=== PATIENT | female | born 1950 | race American Indian/Alaskan Native ===

== ENCOUNTER 2019-07-18 20:34 | Emergency (ER) | payer OTHER, MEDICARE ==
[~2019-07-18] VITALS: Ht 154.9 cm; Wt 115.9 kg
[~2019-07-18 20:34] MED LIST: AMLO2.5T2 PO; CETI-1 PO; DULO-31 PO; METO50TA7 PO; MONT10TA21 PO; OLME40TA13 PO; RANI-648 PO; TIZA4TAB11 PO
[2019-07-18 21:22] LABS: BASOPHILS # (AUTO) 0.1 X10'3 (0-0.2); BASOPHILS % (AUTO) 0.9 % (0-1); EOSINOPHILS # (AUTO) 0.3 X10'3 (0-0.9); EOSINOPHILS % (AUTO) 2.6 % (0-6); HEMATOCRIT 38.1 % (35.0-45.0); HEMOGLOBIN 12.5 g/dl (12.0-16.0); LYMPHOCYTES # (AUTO) 2.7 X10'3 (1.1-4.8); LYMPHOCYTES % (AUTO) 22.1 % (21-51); MEAN CORPUSCULAR HEMOGLOBIN 26.2 PG (27.0-31.0); MEAN CORPUSCULAR HGB CONC 32.9 g/dL (33.0-36.5); MEAN CORPUSCULAR VOLUME 79.8 FL (78-98); MEAN PLATELET VOLUME 7.3 FL (7.4-10.4); MONOCYTES # (AUTO) 1.2 X10'3 (0-0.9); MONOCYTES % (AUTO) 9.8 % (2-12); NEUTROPHILS # (AUTO) 7.9 X10'3 (1.8-7.7); NEUTROPHILS % (AUTO) 64.6 % (42-75); PLATELET COUNT 334 X10'3 (140-440); RED BLOOD COUNT 4.77 X10'6 (4.20-5.60); RED CELL DISTRIBUTION WIDTH 16.2 % (11.5-14.5); WHITE BLOOD COUNT 12.3 X10'3 (4.5-11.0)
[2019-07-18 21:35] LABS: ANION GAP 15 (8-16); BLOOD UREA NITROGEN 8 MG/DL (7-18); BUN/CREATININE RATIO 6.1 (6.6-38.0); CHLORIDE 100 MMOL/L (99-107); CREATININE 1.32 MG/DL (0.40-0.90); GLUCOSE 400 MG/DL (70-104); POTASSIUM 3.6 MMOL/L (3.5-5.1); SODIUM 136 MMOL/L (135-145); eGFR 40 ML/MIN
[2019-07-18 21:36] LABS: ALANINE AMINOTRANSFERASE 19 U/L (12-78); ALBUMIN 3.2 G/DL (3.4-5.0); ALBUMIN/GLOBULIN RATIO 0.8 (1.1-1.5); ALKALINE PHOSPHATASE 255 IU/L (46-116); ASPARTATE AMINO TRANSFERASE 31 U/L (10-37); BILIRUBIN,TOTAL 0.6 MG/DL (0.1-1.0); CALCIUM 8.7 MG/DL (8.5-10.1); LIPASE 123 U/L (73-393); TOTAL PROTEIN 7.1 G/DL (6.4-8.2)
[2019-07-18 22:22] LABS: TROPONIN I < 0.04 NG/ML (0.0-0.05)
[2019-07-18] MEDS ORDERED: normal saline 1000ML IV soln IVB ONE (23:05)
[2019-07-18] MEDS ORDERED: insulin regular, human 10 units/0.1 ml syringe IV ONE (23:05)
[2019-07-18] MEDS ORDERED: ondansetron/PF 4mg/2ml inj IV ONE (23:10)
[2019-07-18] MEDS ORDERED: pantoprazole 40 MG vial IV ONE (23:10)
[2019-07-18] MEDS ORDERED: amLODIPine 5mg tablet PO ONE (23:35)
[2019-07-18] MEDS ORDERED: labetalol 20mg/4ml (5mg/ml) syringe IV ONE (23:35)
[2019-07-19] MEDS ORDERED: insulin regular, human 10 units/0.1 ml syringe IV ONE (00:50)
[2019-07-19] MEDS ORDERED: normal saline 1000ml 1,000 ML IV ONE (00:50)
[2019-07-19 01:15] LABS: CLARITY,URINE CLOUDY (Clear); COLOR,URINE YELLOW (Yellow); GLUCOSE, URINE >=1000 mg/dl (Neg); KETONES,URINE NEGATIVE (Neg); LEUKOCYTE ESTERASE ,URINE NEGATIVE (Neg); NITRITES, URINE NEGATIVE (Neg); OCCULT BLOOD,URINE NEGATIVE (Neg); PROTEIN,URINE NEGATIVE (Neg)
[2019-07-19 01:19] LABS: UA COLLECTION TYPE CLN CATCH MIDSTREAM
[2019-07-19 01:22] LABS: BACTERIA,URINE FEW /HPF (Neg); RBC,URINE NONE SEEN /HPF (0-2); SQUAMOUS EPITHELIAL CELL,UR FEW /LPF (FEW); WBC,URINE 0-4 /HPF (0-4); YEAST FEW /HPF (NEGATIVE)
[2019-07-19] MEDS ORDERED: ketorolac trometh. 30mg/ml inj. IV ONE (01:25)
[2019-07-19] MEDS ORDERED: fentaNYL/PF 50MCG/1 ML 2ML syringe IV ONE (01:25)
[2019-07-19 02:54] VITALS: BP 165/58
== END 2019-07-19 02:40 | disposition home or self-care (01) ==
LOC: ER 20:35
DX: R10.84 Generalized abdominal pain (principal); R21 Rash and other nonspecific skin eruption; E11.65 Type 2 diabetes mellitus with hyperglycemia; R42 Dizziness and giddiness; E11.42 Type 2 diabetes mellitus with diabetic polyneuropathy; M19.90 Unspecified osteoarthritis, unspecified site; I50.9 Heart failure, unspecified; Z56.0 Unemployment, unspecified; Z90.49 Acquired absence of other specified parts of digestive tract; Z90.710 Acquired absence of both cervix and uterus; Z88.0 Allergy status to penicillin; Z88.5 Allergy status to narcotic agent; Z88.8 Allergy status to other drugs, medicaments and biological substances; Z79.899 Other long term (current) drug therapy
CPT/HCPCS: 36415; 71045; 74176; 80053; 81001; 82948; 83690; 84484; 85025; 87088; 93005; 96361; 96374; 96375; 96376; 99284; C9113; J1815; J1885; J2405; J3010; J7030; J3490

== ENCOUNTER 2019-09-16 08:42 | Inpatient (IN) | payer OTHER, MEDICARE ==
[~2019-09-16] VITALS: Ht 154.9 cm; Wt 128.0 kg
[2019-09-16] MEDS ORDERED: acetaminophen 325mg tablet PO STA (08:57)
[2019-09-16] MEDS ORDERED: CefTRIAXone 2gm/D5W 50ml 50 ML IV ONE (09:00)
[2019-09-16] MEDS ORDERED: normal saline 1000ML IV soln IV ONE (09:00)
[2019-09-16 09:25] LABS: CLARITY,URINE CLOUDY (Clear); COLOR,URINE YELLOW (Yellow); GLUCOSE, URINE 500 mg/dl (Neg); KETONES,URINE NEGATIVE (Neg); LEUKOCYTE ESTERASE ,URINE SMALL (Neg); NITRITES, URINE POSITIVE (Neg); OCCULT BLOOD,URINE MODERATE (Neg); PH,URINE 5.5 (4.8-8.0); PROTEIN,URINE 100 mg/dl (Neg)
[2019-09-16 09:26] LABS: UA COLLECTION TYPE STRAIGHT CATH
[2019-09-16 09:30] LABS: BACTERIA,URINE 4+ /HPF (Neg); MUCUS STRANDS NONE SEEN /LPF (Neg); SQUAMOUS EPITHELIAL CELL,UR NONE SEEN /LPF (FEW); WBC CLUMPS,URINE MANY /HPF (NEGATIVE); WBC,URINE TNTC /HPF (0-4)
[2019-09-16 09:45] LABS: BASOPHILS % (AUTO) 0 % (0-1); EOSINOPHILS % (AUTO) 0.3 % (0-6); HEMATOCRIT 31.7 % (35.0-45.0); HEMOGLOBIN 10.5 g/dl (12.0-16.0); LYMPHOCYTES # (AUTO) 0.3 X10'3 (1.1-4.8); LYMPHOCYTES % (AUTO) 3.6 % (21-51); MEAN CORPUSCULAR HEMOGLOBIN 27.3 PG (27.0-31.0); MEAN CORPUSCULAR VOLUME 82.6 FL (78-98); MEAN PLATELET VOLUME 7.3 FL (7.4-10.4); MONOCYTES # (AUTO) 0.1 X10'3 (0-0.9); MONOCYTES % (AUTO) 0.9 % (2-12); NEUTROPHILS # (AUTO) 7.7 X10'3 (1.8-7.7); NEUTROPHILS % (AUTO) 95.2 % (42-75); PLATELET COUNT 188 X10'3 (140-440); RED BLOOD COUNT 3.84 X10'6 (4.20-5.60); RED CELL DISTRIBUTION WIDTH 19.2 % (11.5-14.5)
[2019-09-16] MEDS ORDERED: NITR0.4T48 SL (09:53)
[2019-09-16 09:55] LABS: PARTIAL THROMBOPLASTIN TIME 27 SECONDS (22-32)
[2019-09-16 10:00] LABS: ALANINE AMINOTRANSFERASE 20 U/L (12-78); ALBUMIN 2.3 G/DL (3.4-5.0); ALBUMIN/GLOBULIN RATIO 0.7 (1.1-1.5); ALKALINE PHOSPHATASE 212 IU/L (46-116); ANION GAP 11 (8-16); ASPARTATE AMINO TRANSFERASE 32 U/L (10-37); BILIRUBIN,TOTAL 1.3 MG/DL (0.1-1.0); BLOOD UREA NITROGEN 14 MG/DL (7-18); CALCIUM 7.7 MG/DL (8.5-10.1); CHLORIDE 105 MMOL/L (99-107); CREATININE 1.56 MG/DL (0.40-0.90); GLUCOSE 245 MG/DL (70-104); POTASSIUM 3.6 MMOL/L (3.5-5.1); SODIUM 138 MMOL/L (135-145); TOTAL CARBON DIOXIDE 22.2 MMOL/L (24-32); TOTAL PROTEIN 5.8 G/DL (6.4-8.2); eGFR 33 ML/MIN
[2019-09-16] MEDS ORDERED: DOXE10CA2 PO (10:03)
[2019-09-16] MEDS ORDERED: CHOL400T14 PO (10:03)
[2019-09-16] MEDS ORDERED: CETI10TA18 PO (10:03)
[2019-09-16] MEDS ORDERED: INSU100C4 SQ (10:03)
[2019-09-16] MEDS ORDERED: HYDR-3686 PO (10:03)
[2019-09-16] MEDS ORDERED: DULA0.75 (10:03)
[2019-09-16] MEDS ORDERED: LOSA50TA64 PO (10:03)
[2019-09-16] MEDS ORDERED: NABU500T2 PO (10:03)
[2019-09-16] MEDS ORDERED: CLOT10TR5 PO (10:03)
[2019-09-16] MEDS ORDERED: TIZA4CAP PO (10:03)
[2019-09-16 10:08] LABS: MAGNESIUM 1.4 MG/DL (1.5-2.4)
[2019-09-16] MEDS ORDERED: heparin 25,000 UNIT/250ml bag 250 ML IV SCH (10:14)
--- NOTE | 2019-09-16 10:14 | NUR ---
Lab called with a critical troponin of 1.18 and lactic acid of 5.2. Dr Fernandez notified.
[2019-09-16] MEDS ORDERED: heparin 10,000 units/1 ML INJ IV ONE ×2 (10:15→10:20)
[2019-09-16 10:16] LABS: ANISOCYTOSIS 2+; PLATELET ESTIMATE NORMAL; POLYCHROMASIA 1+; ROULEAUX 1+; TOTAL CELLS COUNTED 100; TOXIC VACUOLATION 1+
[2019-09-16] MEDS: heparin 10,000 units/1 ML INJ IV PRN (10:37)
[2019-09-16] MEDS ORDERED: normal saline 1000ML IV soln IVB ONE (10:55)
[2019-09-16] MEDS: heparin 25,000 UNIT/250ml bag 250 ML IV SCH ×2 (11:02→18:22)
[2019-09-16] MEDS ORDERED: ondansetron/PF 4mg/2ml inj IV PRN (11:30)
[2019-09-16] MEDS ORDERED: magnesium 2GM in 50ml NS 50 ML IV PRN (11:30)
[2019-09-16] MEDS ORDERED: magnesium 4gm in 100ml NS 100 ML IV PRN (11:30)
[2019-09-16] MEDS ORDERED: magnesium hydroxide 30ml (MOM) UD suspension PO PRN (11:30)
[2019-09-16] MEDS ORDERED: morphine 2 MG/ML inj. syringe IV PRN ×2 (11:30)
[2019-09-16] MEDS ORDERED: acetaminophen 325mg tablet PO PRN ×2 (11:30)
[2019-09-16] MEDS ORDERED: potassium Cl 20 mEq SR tablet PO PRN ×2 (11:30)
[2019-09-16] MEDS ORDERED: mag hydrox/Alum hydrox/simeth 30ml oral suspension PO PRN (11:30)
[2019-09-16] MEDS ORDERED: potassium CL 10mEq/100ml bag 100 ML IV PRN ×2 (11:30)
[2019-09-16 11:34] LABS: LIPASE 103 U/L (73-393)
[2019-09-16 12:47] LABS: HEMOGLOBIN A1C 11.3 % (4.5-6.2)
[2019-09-16] MEDS ORDERED: DULA1.5P SQ (12:54)
--- NOTE | 2019-09-16 14:06 | NUR ---
recieved report from VIKASH Bond RN
--- NOTE | 2019-09-16 15:03 | NUR ---
[id number] MESSAGE: New pt arrived to tele Sarai Robert rm 3011S Need meds reconciled. Jody RN [id number] (81 character message out of a maximum of 240)
[2019-09-16] MEDS ORDERED: hydrOXYzine 25 MG tablet PO PRN (15:10)
[2019-09-16] MEDS ORDERED: dextrose 50%-water 50ml dispensing syringe IV PRN ×2 (15:55)
[2019-09-16] MEDS ORDERED: MESSAGE TO PHARMACY PO ONE (15:55)
[2019-09-16] MEDS ORDERED: dextrose ORAL solution 15 GM/59 ML bottle PO PRN ×2 (15:55)
[2019-09-16] MEDS ORDERED: glucagon, human recombinant 1mg kit SUBCUT PRN (15:55)
[2019-09-16] MEDS: normal saline 1000ml 1,000 ML IV SCH (17:40)
[2019-09-16 18:00] VITALS: BP 119/59
--- NOTE | 2019-09-16 18:23 | NUR ---
Problems reprioritized. Patient report given, questions answered & plan of care reviewed with BAYLEE Gu.
--- NOTE | 2019-09-16 18:43 | NUR ---
Patient in room PCU 3012. I have received report from Jody BEACH and had the opportunity to ask questions and assume patient care.
[2019-09-16] MEDS: insulin Lispro (HumaLOG) vial - multi-dose SQ SCH ×2 (19:16→21:12)
[2019-09-16] MEDS ORDERED: tizanidine 4mg tablet PO PRN (20:00)
[2019-09-16] MEDS: K and/or MAG REPLACEMENT MC SCH (20:16)
[2019-09-16] MEDS: lactobacillus rhamnosus 10,000 MMU CELLS/CAPSULE PO SCH (20:55)
[2019-09-16] MEDS: amLODIPine 5mg tablet PO SCH (20:56)
[2019-09-16] MEDS: metoprolol succinate 25mg (24-HOUR) SR. Tablet PO SCH (20:56)
[2019-09-16] MEDS: HYDROcodone/acetaminophen 5mg/325mg tablet PO PRN (21:01)
[2019-09-16] MEDS: insulin glargine (Lantus) pen - multi-dose SQ SCH (21:13)
--- NOTE | 2019-09-16 21:30 | NUR ---
Notified Dr. Gabriel of positive blood cultures and troponin of 3.29. No orders received, pt on ceftriaxone
[2019-09-16 22:00] VITALS: BP 151/59
[2019-09-16] MEDS: doxepin 10mg capsule PO SCH (22:39)
[2019-09-16] MEDS: nitroGLYCERIN 0.4mg SUBLingual tab SL PRN ×2 (22:48→22:54)
--- NOTE | 2019-09-16 23:07 | NUR ---
pt complaining of 10/10 epigastric pain, per pt this is the same pain which brought her to the hospital. 12 EKG obtained per protocol, pt given two doses 0.4mg nitro SL, and 1 dose of morphine 2mg IV per orders. Dr. Gabriel notified and given EKG, pts pain back to a 2/10.
[2019-09-17 01:04] LABS: BASOPHILS # (AUTO) 0.2 X10'3 (0-0.2); EOSINOPHILS # (AUTO) 0.1 X10'3 (0-0.9); EOSINOPHILS % (AUTO) 1.1 % (0-6); HEMATOCRIT 30.3 % (35.0-45.0); HEMOGLOBIN 10.1 g/dl (12.0-16.0); LYMPHOCYTES # (AUTO) 1.1 X10'3 (1.1-4.8); MEAN CORPUSCULAR HEMOGLOBIN 27.3 PG (27.0-31.0); MEAN CORPUSCULAR HGB CONC 33.2 g/dL (33.0-36.5); MEAN CORPUSCULAR VOLUME 82.2 FL (78-98); MEAN PLATELET VOLUME 7.6 FL (7.4-10.4); MONOCYTES # (AUTO) 0.5 X10'3 (0-0.9); MONOCYTES % (AUTO) 4.6 % (2-12); NEUTROPHILS # (AUTO) 9.8 X10'3 (1.8-7.7); NEUTROPHILS % (AUTO) 83.3 % (42-75); PLATELET COUNT 182 X10'3 (140-440); RED BLOOD COUNT 3.69 X10'6 (4.20-5.60); RED CELL DISTRIBUTION WIDTH 19.5 % (11.5-14.5); WHITE BLOOD COUNT 11.8 X10'3 (4.5-11.0)
[2019-09-17 01:22] LABS: ALBUMIN 2.3 G/DL (3.4-5.0); ANION GAP 6 (8-16); BLOOD UREA NITROGEN 20 MG/DL (7-18); BUN/CREATININE RATIO 12.6 (6.6-38.0); CALCIUM 7.4 MG/DL (8.5-10.1); CHLORIDE 108 MMOL/L (99-107); CHOL/HDL RATIO 3.4 (0.00-4.99); CHOLESTEROL 74 MG/DL (0-200); CREATININE 1.59 MG/DL (0.40-0.90); GLUCOSE 213 MG/DL (70-104); HDL CHOLESTEROL 22 MG/DL (35-60); LDL CHOLESTEROL 43 MG/DL (50-100); MAGNESIUM 1.5 MG/DL (1.5-2.4); POTASSIUM 3.8 MMOL/L (3.5-5.1); SODIUM 138 MMOL/L (135-145); TOTAL CARBON DIOXIDE 23.9 MMOL/L (24-32); TRIGLYCERIDES 101 MG/DL (20-135); eGFR 32 ML/MIN
[2019-09-17 02:00] VITALS: BP 131/64
[2019-09-17] MEDS: heparin 10,000 units/1 ML INJ IV PRN (02:09)
[2019-09-17] MEDS: HYDROcodone/acetaminophen 5mg/325mg tablet PO PRN ×3 (04:19→21:17)
[2019-09-17] MEDS: heparin 25,000 UNIT/250ml bag 250 ML IV SCH ×4 (04:39→21:44)
[2019-09-17 06:00] VITALS: BP 148/72
--- NOTE | 2019-09-17 06:00 | NUR ---
Patient in room PCU 3012. I have received report from Riccardo BEACH and had the opportunity to ask questions and assume patient care.
[2019-09-17 06:14] LABS: ANISOCYTOSIS 2+; MICROCYTOSIS 1+; PLATELET ESTIMATE NORMAL; TOTAL CELLS COUNTED 100
[2019-09-17 06:15] LABS: POLYCHROMASIA FEW
--- NOTE | 2019-09-17 06:21 | NUR ---
Problems reprioritized. Patient report given, questions answered & plan of care reviewed with Farzana BEACH.
[2019-09-17] MEDS: K and/or MAG REPLACEMENT MC SCH ×2 (08:00→19:49)
[2019-09-17] MEDS: vitamin D (cholecalciferol) 1,000 unit tablet PO SCH (08:14)
[2019-09-17] MEDS: lactobacillus rhamnosus 10,000 MMU CELLS/CAPSULE PO SCH ×2 (08:14→21:16)
[2019-09-17] MEDS: duloxetine 30mg CAPSULE.DR PO SCH (08:14)
[2019-09-17] MEDS: aspirin 81mg tablet.DR PO SCH (08:15)
[2019-09-17] MEDS: CefTRIAXone 2gm/D5W 50ml 50 ML IV SCH (08:15)
[2019-09-17] MEDS: metoprolol succinate 25mg (24-HOUR) SR. Tablet PO SCH ×2 (08:15→21:17)
[2019-09-17] MEDS: normal saline 1000ml 1,000 ML IV SCH (08:16)
[2019-09-17] MEDS: insulin Lispro (HumaLOG) vial - multi-dose SQ SCH ×4 (08:25→21:33)
[2019-09-17 11:00] VITALS: BP 136/75
[2019-09-17] MEDS ORDERED: clopidogrel 75mg tablet PO SCH (13:00)
--- NOTE | 2019-09-17 13:06 | NUR ---
Received call from Tomi SHIPMAN with orders for Plavix 75mg PO Daily. wanted pt. to be seen by phys. therapy which I informed him was already ordered earlier today. He also advised that I get a hold of case management to inform them that pt. is too large to do a cath with us and to refer pt. to [facility] where she may be a better candidate for heart cath. Called family preservation caseworker Ankita at ext. [phone] and passed on Tomi SHIPMAN's message and she stated that she will restart the process though she is aware that there are no rooms available at this time.
[2019-09-17] MEDS: clopidogrel 75mg tablet PO SCH (14:10)
[2019-09-17 15:00] VITALS: BP 178/76
--- NOTE | 2019-09-17 15:20 | NUR ---
Providing break relief for primary RN....went to room when call light was turned on. Patient laying in bed on her side, c/o shortness of breath. Patient diaphoretic, with respiratory distress and noted wheezing/gurguling noises. VS immediately taken, patient saturation 74% on 2L/min NC, tachycardiac 110's. Increased O2 to 5L NC with improvement to 80%. Brought molding technician, Amalia, into room to assess patient. Rapid response activated at that time. VS: 83% on 4L, 94% on NRB, 101 HR, RR 32, 198/86.
[2019-09-17] MEDS ORDERED: furosemide 40mg/4ml inj IV ONE ×2 (15:25→16:00)
--- NOTE | 2019-09-17 15:40 | NUR ---
PAGER ID: [phone] MESSAGE: PCU.. WE NEED DR MARADIAGA OR HOSPITALIST CHARGE TO COME TO 3012C PCU RAPID. GARCIA Sindy
--- NOTE | 2019-09-17 15:45 | NUR ---
PAGER ID: [phone] MESSAGE: [id number] RUFUS. PT TOO OBESE TO PLACE A VARELA. ATTEMPTED WITH RN X3. NO VISUALISATION OF URITHRA. JOSE MÁRQUEZ
[2019-09-17 16:17] LABS: ALBUMIN 2.1 G/DL (3.4-5.0); ANION GAP 11 (8-16); BLOOD UREA NITROGEN 15 MG/DL (7-18); BUN/CREATININE RATIO 11.6 (6.6-38.0); CALCIUM 7.2 MG/DL (8.5-10.1); CHLORIDE 106 MMOL/L (99-107); CREATININE 1.29 MG/DL (0.40-0.90); GLUCOSE 223 MG/DL (70-104); POTASSIUM 3.5 MMOL/L (3.5-5.1); SODIUM 138 MMOL/L (135-145); TOTAL CARBON DIOXIDE 20.9 MMOL/L (24-32); eGFR 41 ML/MIN
--- NOTE | 2019-09-17 16:38 | NUR ---
PAGER ID: [phone] MESSAGE: 3012C RUFUS BP 230/100. HR 89, 500 CC URINE. JOSE MÁRQUEZ
[2019-09-17] MEDS: labetalol 20mg/4ml (5mg/ml) syringe IV PRN ×2 (16:52→22:32)
--- NOTE | 2019-09-17 17:56 | NUR ---
DM consult, Hgb A1c is 11.3; Patient met at bedside and given written DM education handout and referral to outpatient DM education class on Thursday. Noted that patient is hard of hearing, was able to answer some questions appropriately. Attempted verbal review of DM education. May need reinforcement. Will continue to follow. Addendum: 09/17/19 at [address] Amended: Links added.
[2019-09-17 18:00] VITALS: BP 151/72
--- NOTE | 2019-09-17 18:25 | NUR ---
Problems reprioritized. Patient report given, questions answered & plan of care reviewed with Riccardo BEACH.
--- NOTE | 2019-09-17 18:31 | NUR ---
Patient in room PCU 3012. I have received report from Farzana BEACH and had the opportunity to ask questions and assume patient care.
[2019-09-17] MEDS: doxepin 10mg capsule PO SCH (21:16)
[2019-09-17] MEDS: furosemide 40mg/4ml inj IV SCH (21:16)
[2019-09-17] MEDS: amLODIPine 5mg tablet PO SCH (21:17)
[2019-09-17] MEDS: insulin glargine (Lantus) pen - multi-dose SQ SCH (21:33)
[2019-09-17 22:00] VITALS: BP 184/85
[2019-09-18] VITALS (7 sets, daily range): BP systolic 148–189; BP diastolic 63–85
[2019-09-18 00:56] LABS: ALBUMIN 2.1 G/DL (3.4-5.0); ANION GAP 9 (8-16); BLOOD UREA NITROGEN 13 MG/DL (7-18); BUN/CREATININE RATIO 9.8 (6.6-38.0); CALCIUM 7.5 MG/DL (8.5-10.1); CHLORIDE 104 MMOL/L (99-107); CREATININE 1.33 MG/DL (0.40-0.90); GLUCOSE 288 MG/DL (70-104); MAGNESIUM 1.3 MG/DL (1.5-2.4); POTASSIUM 3.5 MMOL/L (3.5-5.1); SODIUM 139 MMOL/L (135-145); TOTAL CARBON DIOXIDE 25.6 MMOL/L (24-32); eGFR 40 ML/MIN
[2019-09-18 01:14] LABS: BASOPHILS # (AUTO) 0.1 X10'3 (0-0.2); BASOPHILS % (AUTO) 0.7 % (0-1); EOSINOPHILS # (AUTO) 0.1 X10'3 (0-0.9); EOSINOPHILS % (AUTO) 0.7 % (0-6); HEMATOCRIT 30.7 % (35.0-45.0); HEMOGLOBIN 10.2 g/dl (12.0-16.0); LYMPHOCYTES # (AUTO) 0.8 X10'3 (1.1-4.8); LYMPHOCYTES % (AUTO) 9.5 % (21-51); MEAN CORPUSCULAR HEMOGLOBIN 27.2 PG (27.0-31.0); MEAN CORPUSCULAR HGB CONC 33.1 g/dL (33.0-36.5); MEAN CORPUSCULAR VOLUME 81.9 FL (78-98); MEAN PLATELET VOLUME 7.7 FL (7.4-10.4); MONOCYTES # (AUTO) 0.6 X10'3 (0-0.9); MONOCYTES % (AUTO) 7.8 % (2-12); NEUTROPHILS # (AUTO) 6.8 X10'3 (1.8-7.7); NEUTROPHILS % (AUTO) 81.3 % (42-75); PLATELET COUNT 179 X10'3 (140-440); RED BLOOD COUNT 3.75 X10'6 (4.20-5.60); RED CELL DISTRIBUTION WIDTH 19.3 % (11.5-14.5); WHITE BLOOD COUNT 8.3 X10'3 (4.5-11.0)
[2019-09-18] MEDS: labetalol 20mg/4ml (5mg/ml) syringe IV PRN ×3 (02:28→23:58)
--- NOTE | 2019-09-18 06:17 | NUR ---
Problems reprioritized. Patient report given, questions answered & plan of care reviewed with Abbey BEACH.
--- NOTE | 2019-09-18 06:54 | NUR ---
Patient in room PCU 3012. I have received report from Riccardo BEACH and had the opportunity to ask questions and assume patient care. Patient awake in bed with no complaints at this time. All immediate needs met.
[2019-09-18] MEDS: K and/or MAG REPLACEMENT MC SCH ×2 (08:00→21:08)
[2019-09-18] MEDS: duloxetine 30mg CAPSULE.DR PO SCH (09:20)
[2019-09-18] MEDS: furosemide 40mg/4ml inj IV SCH ×2 (09:20→21:16)
[2019-09-18] MEDS: CefTRIAXone 2gm/D5W 50ml 50 ML IV SCH (09:20)
[2019-09-18] MEDS: vitamin D (cholecalciferol) 1,000 unit tablet PO SCH (09:21)
[2019-09-18] MEDS: metoprolol succinate 25mg (24-HOUR) SR. Tablet PO SCH ×2 (09:21→21:17)
[2019-09-18] MEDS: aspirin 81mg tablet.DR PO SCH (09:21)
[2019-09-18] MEDS: lactobacillus rhamnosus 10,000 MMU CELLS/CAPSULE PO SCH ×2 (09:21→21:16)
[2019-09-18] MEDS: insulin Lispro (HumaLOG) vial - multi-dose SQ SCH ×3 (09:36→19:13)
[2019-09-18] MEDS: clopidogrel 75mg tablet PO SCH (09:37)
--- NOTE | 2019-09-18 10:00 | NUR ---
Discontinued valerio catheter. Patient tolerated well. Will monitor for void. 1100 cc urine output.
[2019-09-18] MEDS: magnesium Cl slow-release 64mg tablet PO PRN (10:18)
--- NOTE | 2019-09-18 15:20 | NUR ---
F/u: Pt seen by RD to determine if further DM concerns. Pt in large amount ot discomfort during RD visit and requests RN. RN notified. Will monitor for additional DM questions this admit. Pt has RD contact information. Addendum: 09/18/19 at [address] Amended: Links added.
[2019-09-18] MEDS: HYDROcodone/acetaminophen 5mg/325mg tablet PO PRN (15:24)
[2019-09-18] MEDS: nitroGLYCERIN 0.4mg SUBLingual tab SL PRN ×2 (15:39→15:45)
--- NOTE | 2019-09-18 16:04 | NUR ---
Dr. Moore reviewed STAT EKG. NSTEMI. Restart heparin gtt per protocol.
[2019-09-18] MEDS ORDERED: heparin 10,000 units/1 ML INJ IV PRN (16:05)
[2019-09-18] MEDS ORDERED: heparin 10,000 units/1 ML INJ IV ONE (16:05)
[2019-09-18] MEDS: heparin 25,000 UNIT/250ml bag 250 ML IV SCH (16:27)
--- NOTE | 2019-09-18 16:35 | NUR ---
Paged Dr. Moore: PAGER ID: [phone] MESSAGE: RE: Sarai Robert [id number]. Troponin 1.20. heparin gtt restarted. Thank you, Abbey [id number]
--- NOTE | 2019-09-18 18:15 | NUR ---
Patient in room PCU 3012. I have received report from Abbey BEACH and had the opportunity to ask questions and assume patient care.
--- NOTE | 2019-09-18 18:15 | NUR ---
Problems reprioritized. Patient report given, questions answered & plan of care reviewed with Riccardo BEACH. Patient stable at transfer of care.
--- NOTE | 2019-09-18 19:30 | NUR ---
Notified Dr. Gabriel of troponin of 1.28, no change in orders, pt currently on heparin infusion.
[2019-09-18] MEDS: amLODIPine 5mg tablet PO SCH (21:16)
[2019-09-18] MEDS: doxepin 10mg capsule PO SCH (21:16)
[2019-09-18] MEDS: insulin glargine (Lantus) pen - multi-dose SQ SCH (21:28)
[2019-09-19] MEDS: nystatin 15 GM powder TP PRN (00:57)
[2019-09-19 02:00] VITALS: BP 165/74
[2019-09-19] MEDS: labetalol 20mg/4ml (5mg/ml) syringe IV PRN ×2 (02:46→11:10)
[2019-09-19 06:00] LABS: EOSINOPHILS # (AUTO) 0.1 X10'3 (0-0.9); MEAN CORPUSCULAR HEMOGLOBIN 26.9 PG (27.0-31.0); MEAN PLATELET VOLUME 7.5 FL (7.4-10.4); MONOCYTES # (AUTO) 0.7 X10'3 (0-0.9); NEUTROPHILS # (AUTO) 4.2 X10'3 (1.8-7.7); PLATELET COUNT 183 X10'3 (140-440); RED CELL DISTRIBUTION WIDTH 18.9 % (11.5-14.5); WHITE BLOOD COUNT 6.1 X10'3 (4.5-11.0)
[2019-09-19 06:01] LABS: EOSINOPHILS % (AUTO) 1.9 % (0-6); HEMATOCRIT 30.5 % (35.0-45.0); HEMOGLOBIN 10.2 g/dl (12.0-16.0); MEAN CORPUSCULAR HGB CONC 33.3 g/dL (33.0-36.5); MEAN CORPUSCULAR VOLUME 80.6 FL (78-98); MONOCYTES % (AUTO) 11.7 % (2-12); NEUTROPHILS % (AUTO) 68.9 % (42-75); RED BLOOD COUNT 3.79 X10'6 (4.20-5.60)
[2019-09-19 06:02] LABS: BASOPHILS % (AUTO) 0.5 % (0-1)
--- NOTE | 2019-09-19 06:07 | NUR ---
Problems reprioritized. Patient report given, questions answered & plan of care reviewed with Abbey BEACH.
--- NOTE | 2019-09-19 06:19 | NUR ---
Patient in room PCU 3012. I have received report from Riccardo BEACH and had the opportunity to ask questions and assume patient care. Patient asleep in bed and resting comfortably. In no acute distress.
[2019-09-19 06:24] LABS: ANION GAP 9 (8-16); BLOOD UREA NITROGEN 8 MG/DL (7-18); BUN/CREATININE RATIO 7.9 (6.6-38.0); CALCIUM 7.8 MG/DL (8.5-10.1); CHLORIDE 101 MMOL/L (99-107); CREATININE 1.01 MG/DL (0.40-0.90); GLUCOSE 221 MG/DL (70-104); MAGNESIUM 1.3 MG/DL (1.5-2.4); SODIUM 139 MMOL/L (135-145); TOTAL CARBON DIOXIDE 29.3 MMOL/L (24-32); eGFR 54 ML/MIN
--- NOTE | 2019-09-19 06:53 | NUR ---
Critical lab: Potassium 3.[address] Gabriel. Will replace per protocol.
[2019-09-19 07:00] VITALS: BP 146/70
[2019-09-19] MEDS: furosemide 40mg/4ml inj IV SCH ×2 (07:20→19:24)
[2019-09-19] MEDS: CefTRIAXone 2gm/D5W 50ml 50 ML IV SCH (07:20)
[2019-09-19] MEDS: vitamin D (cholecalciferol) 1,000 unit tablet PO SCH (07:21)
[2019-09-19] MEDS: aspirin 81mg tablet.DR PO SCH (07:21)
[2019-09-19] MEDS: metoprolol succinate 25mg (24-HOUR) SR. Tablet PO SCH ×2 (07:21→19:24)
[2019-09-19] MEDS: duloxetine 30mg CAPSULE.DR PO SCH (07:21)
[2019-09-19] MEDS: lactobacillus rhamnosus 10,000 MMU CELLS/CAPSULE PO SCH ×2 (07:21→20:38)
[2019-09-19] MEDS: magnesium Cl slow-release 64mg tablet PO PRN ×2 (07:21→20:37)
[2019-09-19] MEDS: K and/or MAG REPLACEMENT MC SCH ×2 (07:22→20:00)
[2019-09-19] MEDS: clopidogrel 75mg tablet PO SCH (07:22)
[2019-09-19] MEDS: heparin 25,000 UNIT/250ml bag 250 ML IV SCH ×2 (07:45→09:07)
[2019-09-19] MEDS: insulin Lispro (HumaLOG) vial - multi-dose SQ SCH ×3 (09:03→19:43)
[2019-09-19 10:28] LABS: PLATELET ESTIMATE NORMAL
[2019-09-19 10:29] LABS: ANISOCYTOSIS 2+
[2019-09-19 11:00] VITALS: BP 173/91
[2019-09-19] MEDS: HYDROcodone/acetaminophen 5mg/325mg tablet PO PRN ×2 (11:11→19:24)
[2019-09-19] MEDS ORDERED: potassium CL 10mEq/100ml bag 100 ML IV PRN (13:30)
[2019-09-19] MEDS ORDERED: magnesium 4gm in 100ml NS 100 ML IV PRN (13:30)
[2019-09-19 15:00] VITALS: BP 159/80
[2019-09-19] MEDS: potassium Cl 20 mEq SR tablet PO PRN ×2 (16:07→20:37)
[2019-09-19 18:30] VITALS: BP 184/90
--- NOTE | 2019-09-19 18:32 | NUR ---
Patient in room PCU 3012. I have received report from Abbey BEACH and had the opportunity to ask questions and assume patient care.
--- NOTE | 2019-09-19 18:38 | NUR ---
Problems reprioritized. Patient report given, questions answered & plan of care reviewed with Marla BEACH. Patient stable at transfer of care.
[2019-09-19] MEDS: doxepin 10mg capsule PO SCH (20:38)
[2019-09-19] MEDS: amLODIPine 5mg tablet PO SCH (20:38)
[2019-09-19] MEDS: insulin glargine (Lantus) pen - multi-dose SQ SCH (21:50)
[2019-09-19 22:30] VITALS: BP 146/96
[2019-09-20] VITALS (7 sets, daily range): BP systolic 123–190; BP diastolic 60–90
[2019-09-20] MEDS: HYDROcodone/acetaminophen 5mg/325mg tablet PO PRN ×2 (03:15→12:52)
[2019-09-20] MEDS: labetalol 20mg/4ml (5mg/ml) syringe IV PRN (03:15)
--- NOTE | 2019-09-20 04:23 | NUR ---
2 RN skin assessment was done, although I do not know if it was done on admit, it was done last night for sure. There may be a system glitch because this RN signed it last noc with Riccardo BEACH, but in the interventions today it does not appear to be there
[2019-09-20 04:58] LABS: ANION GAP 6 (8-16); BLOOD UREA NITROGEN 11 MG/DL (7-18); BUN/CREATININE RATIO 9.8 (6.6-38.0); CALCIUM 8.2 MG/DL (8.5-10.1); CHLORIDE 101 MMOL/L (99-107); CREATININE 1.12 MG/DL (0.40-0.90); GLUCOSE 214 MG/DL (70-104); MAGNESIUM 1.3 MG/DL (1.5-2.4); POTASSIUM 3.6 MMOL/L (3.5-5.1); SODIUM 138 MMOL/L (135-145); TOTAL CARBON DIOXIDE 31.2 MMOL/L (24-32); eGFR 48 ML/MIN
[2019-09-20 05:04] LABS: EOSINOPHILS # (AUTO) 0.2 X10'3 (0-0.9); HEMATOCRIT 30.9 % (35.0-45.0); LYMPHOCYTES # (AUTO) 1.4 X10'3 (1.1-4.8); MEAN PLATELET VOLUME 7.5 FL (7.4-10.4); PLATELET COUNT 197 X10'3 (140-440)
[2019-09-20 05:06] LABS: BASOPHILS % (AUTO) 0.9 % (0-1); EOSINOPHILS % (AUTO) 3.8 % (0-6); HEMOGLOBIN 10.3 g/dl (12.0-16.0); LYMPHOCYTES % (AUTO) 26.9 % (21-51); MEAN CORPUSCULAR HEMOGLOBIN 26.7 PG (27.0-31.0); MEAN CORPUSCULAR HGB CONC 33.3 g/dL (33.0-36.5); MEAN CORPUSCULAR VOLUME 80.4 FL (78-98); MONOCYTES % (AUTO) 18.3 % (2-12); NEUTROPHILS # (AUTO) 2.6 X10'3 (1.8-7.7); NEUTROPHILS % (AUTO) 50.1 % (42-75); RED BLOOD COUNT 3.85 X10'6 (4.20-5.60); WHITE BLOOD COUNT 5.2 X10'3 (4.5-11.0)
--- NOTE | 2019-09-20 06:20 | NUR ---
Problems reprioritized. Patient report given, questions answered & plan of care reviewed with Abbey BEACH.
--- NOTE | 2019-09-20 06:29 | NUR ---
Patient in room PCU 3012. I have received report from Marla BEACH and had the opportunity to ask questions and assume patient care, patient is stable and sleeping at transfer.
--- NOTE | 2019-09-20 06:30 | NUR ---
Patient in room PCU 3012. I have received report from Marla BEACH and had the opportunity to ask questions and assume patient care. Patient asleep in bed. On room air. In no acute distress. Will continue to monitor.
[2019-09-20 07:59] LABS: TOTAL CELLS COUNTED 100
[2019-09-20 08:00] LABS: ANISOCYTOSIS 2+; PLATELET ESTIMATE NORMAL
[2019-09-20] MEDS: furosemide 40mg/4ml inj IV SCH (08:11)
[2019-09-20] MEDS: duloxetine 30mg CAPSULE.DR PO SCH (08:13)
[2019-09-20] MEDS: metoprolol succinate 25mg (24-HOUR) SR. Tablet PO SCH ×2 (08:14→19:21)
[2019-09-20] MEDS: clopidogrel 75mg tablet PO SCH (08:14)
[2019-09-20] MEDS: lactobacillus rhamnosus 10,000 MMU CELLS/CAPSULE PO SCH ×2 (08:15→19:21)
[2019-09-20] MEDS: vitamin D (cholecalciferol) 1,000 unit tablet PO SCH (08:15)
[2019-09-20] MEDS: CefTRIAXone 2gm/D5W 50ml 50 ML IV SCH (08:16)
[2019-09-20] MEDS: magnesium Cl slow-release 64mg tablet PO PRN (08:16)
[2019-09-20] MEDS: aspirin 81mg tablet.DR PO SCH (08:18)
[2019-09-20] MEDS: K and/or MAG REPLACEMENT MC SCH ×2 (08:19→20:00)
--- NOTE | 2019-09-20 09:15 | NUR ---
Administered 15 units SQ Humalog for blood glucose 200 and carbs 13. 2 patient identifiers used. Medication administration did not save in computer. Patient is level 6 on hyperglycemia protocol.
[2019-09-20] MEDS: nystatin 15 GM powder TP PRN (12:52)
[2019-09-20] MEDS: insulin Lispro (HumaLOG) vial - multi-dose SQ SCH ×2 (12:56→19:18)
--- NOTE | 2019-09-20 16:09 | NUR ---
Dr. Hitchcock notified RE: 3012C, Kelli Robert. Patient had a 7 beat run of V-tach, notified by tele. Patient asymptomatic. Mg 1.3 and replaced per protocol BP 143/60 HR 76. Paulo [id number]
[2019-09-20] MEDS ORDERED: magnesium 2GM in 50ml NS 50 ML IV ONE (16:20)
--- NOTE | 2019-09-20 18:15 | NUR ---
Problems reprioritized. Patient report given, questions answered & plan of care reviewed with Zay BEACH. Patient stable at transfer of care.
--- NOTE | 2019-09-20 18:21 | NUR ---
Problems reprioritized. Patient report given to Zay BEACH, questions answered & plan of care reviewed, patient stable at transfer.
--- NOTE | 2019-09-20 18:25 | NUR ---
Patient in room PCU 3012C. I have received report from Abeby RN and BAYLEE Bates and had the opportunity to ask questions and assume patient care.
--- NOTE | 2019-09-20 18:41 | NUR ---
[place] documentation: I have reviewed and agree with all interventions, assessments performed and documented by BAYLEE Bates. [place] Medication Administration: For this medication-pass time frame, all medication were reviewed, dispensed, administered and documented per hospital policy by BAYLEE Bates.
[2019-09-20] MEDS: furosemide 40mg tablet PO SCH (19:21)
[2019-09-20] MEDS: doxepin 10mg capsule PO SCH (21:27)
[2019-09-20] MEDS: insulin glargine (Lantus) pen - multi-dose SQ SCH (21:35)
[2019-09-20] MEDS: amLODIPine 5mg tablet PO SCH (21:36)
[2019-09-21] MEDS: HYDROcodone/acetaminophen 5mg/325mg tablet PO PRN ×2 (00:03→19:00)
[2019-09-21 03:00] VITALS: BP 158/72
[2019-09-21 05:55] LABS: BASOPHILS # (AUTO) 0.1 X10'3 (0-0.2); EOSINOPHILS # (AUTO) 0.2 X10'3 (0-0.9); EOSINOPHILS % (AUTO) 3.6 % (0-6); HEMATOCRIT 32.4 % (35.0-45.0); HEMOGLOBIN 10.8 g/dl (12.0-16.0); LYMPHOCYTES # (AUTO) 1.6 X10'3 (1.1-4.8); LYMPHOCYTES % (AUTO) 26.4 % (21-51); MEAN CORPUSCULAR HEMOGLOBIN 26.9 PG (27.0-31.0); MEAN CORPUSCULAR HGB CONC 33.5 g/dL (33.0-36.5); MEAN CORPUSCULAR VOLUME 80.3 FL (78-98); MEAN PLATELET VOLUME 7.3 FL (7.4-10.4); MONOCYTES % (AUTO) 16.3 % (2-12); NEUTROPHILS # (AUTO) 3.2 X10'3 (1.8-7.7); NEUTROPHILS % (AUTO) 52.7 % (42-75); PLATELET COUNT 214 X10'3 (140-440); RED BLOOD COUNT 4.04 X10'6 (4.20-5.60); RED CELL DISTRIBUTION WIDTH 18.9 % (11.5-14.5)
[2019-09-21 05:58] LABS: ALBUMIN 2.2 G/DL (3.4-5.0); ANION GAP 8 (8-16); BLOOD UREA NITROGEN 9 MG/DL (7-18); BUN/CREATININE RATIO 9.1 (6.6-38.0); CALCIUM 8.3 MG/DL (8.5-10.1); CHLORIDE 100 MMOL/L (99-107); CREATININE 0.99 MG/DL (0.40-0.90); GLUCOSE 202 MG/DL (70-104); MAGNESIUM 1.6 MG/DL (1.5-2.4); POTASSIUM 3.1 MMOL/L (3.5-5.1); SODIUM 139 MMOL/L (135-145); TOTAL CARBON DIOXIDE 31.5 MMOL/L (24-32); eGFR 56 ML/MIN
[2019-09-21 06:00] VITALS: BP 145/75
--- NOTE | 2019-09-21 06:29 | NUR ---
Problems reprioritized. Patient report given, questions answered & plan of care reviewed with BAYLEE Reddy.
--- NOTE | 2019-09-21 06:44 | NUR ---
Patient in room PCU 3012C. I have received report from Zay BEACH and had the opportunity to ask questions and assume patient care. Pt laying in bed, eyes closed, no signs of distress at this time.
[2019-09-21] MEDS: enoxaparin 40mg/0.4ml syringe SUBCUT SCH (08:08)
[2019-09-21] MEDS: duloxetine 30mg CAPSULE.DR PO SCH (08:09)
[2019-09-21] MEDS: aspirin 81mg tablet.DR PO SCH (08:09)
[2019-09-21] MEDS: lactobacillus rhamnosus 10,000 MMU CELLS/CAPSULE PO SCH ×2 (08:09→20:31)
[2019-09-21] MEDS: clopidogrel 75mg tablet PO SCH (08:09)
[2019-09-21] MEDS: metoprolol succinate 25mg (24-HOUR) SR. Tablet PO SCH ×2 (08:09→20:32)
[2019-09-21] MEDS: vitamin D (cholecalciferol) 1,000 unit tablet PO SCH (08:09)
[2019-09-21] MEDS: furosemide 40mg tablet PO SCH ×2 (08:10→21:08)
[2019-09-21] MEDS: CefTRIAXone 2gm/D5W 50ml 50 ML IV SCH (08:10)
[2019-09-21] MEDS: potassium Cl 20 mEq SR tablet PO PRN ×3 (08:11→18:45)
[2019-09-21] MEDS: K and/or MAG REPLACEMENT MC SCH ×2 (08:28→20:00)
[2019-09-21] MEDS: insulin Lispro (HumaLOG) vial - multi-dose SQ SCH ×4 (08:34→21:22)
[2019-09-21 10:33] LABS: ANISOCYTOSIS 2+; PLATELET ESTIMATE NORMAL; TOTAL CELLS COUNTED 100
[2019-09-21 11:00] VITALS: BP 154/71
[2019-09-21 15:00] VITALS: BP 150/84
--- NOTE | 2019-09-21 15:15 | NUR ---
Initial: Pt admitted for sepsis r/t UTI. RD program management intern visited pt at bedside to provide protein education and DM education with referral to CDE course and RD contact information. Pt reports A1c normally at 9, however currently documented at 11.3. Pt could not recall when A1c last at 9. Pt reports visiting [facility] Frey for DM management. Pt encouraged to visit frequently for DM management. Pt reports checking blood sugars at breakfast and dinner and administering insulin then. Pt reports blood sugars regularly around 200s and believed that to be a good blood sugar. RD program management intern reviewed blood sugar ranges prior to eating and after eating. Pt encouraged to attend CDE course to get more information about DM management. Pt eating 25-50%, pt provided with alternate food list for carb controlled diet. Pt preferences obtained for dinner, d/w dietary. Will continue to monitor. Recommendations: 1. continue carb controlled diet, honor food preferences 2. bowel care as needed 3. weight per rx Addendum: 09/21/19 at 1516 by Wing Mary DE JESUS Amended: Links added. Addendum: 09/21/19 at [address] LIZA Carr
--- NOTE | 2019-09-21 18:25 | NUR ---
Problems reprioritized. Patient report given, questions answered & plan of care reviewed with Zay BEACH.
--- NOTE | 2019-09-21 18:29 | NUR ---
Patient in room PCU 3012c. I have received report from Maureen Villatoro RN and had the opportunity to ask questions and assume patient care.
[2019-09-21] MEDS: labetalol 20mg/4ml (5mg/ml) syringe IV PRN (18:45)
[2019-09-21 19:00] VITALS: BP 177/72
[2019-09-21] MEDS: doxepin 10mg capsule PO SCH (20:31)
[2019-09-21] MEDS: amLODIPine 5mg tablet PO SCH (20:31)
[2019-09-21] MEDS: potassium Cl 20 mEq SR tablet PO SCH (20:38)
[2019-09-21] MEDS: insulin glargine (Lantus) pen - multi-dose SQ SCH (21:12)
--- NOTE | 2019-09-21 21:16 | NUR ---
Scanner would not scan during [id number] medication pass. Work order placed.
[2019-09-21 23:00] VITALS: BP 134/59
[2019-09-22 02:56] VITALS: BP 132/63
--- NOTE | 2019-09-22 06:20 | NUR ---
Problems reprioritized. Patient report given, questions answered & plan of care reviewed with Anabela RN and Susy Student Nurse.
--- NOTE | 2019-09-22 06:21 | NUR ---
Patient in room PCU 3012. I have received report from BAYLEE Collazo and had the opportunity to ask questions and assume patient care.
[2019-09-22 07:00] VITALS: BP 156/86
[2019-09-22 07:32] VITALS: BP 137/79
[2019-09-22] MEDS: lactobacillus rhamnosus 10,000 MMU CELLS/CAPSULE PO SCH (07:36)
[2019-09-22] MEDS: potassium Cl 20 mEq SR tablet PO SCH (07:37)
[2019-09-22] MEDS: furosemide 40mg tablet PO SCH (07:37)
[2019-09-22] MEDS: duloxetine 30mg CAPSULE.DR PO SCH (07:37)
[2019-09-22] MEDS: vitamin D (cholecalciferol) 1,000 unit tablet PO SCH (07:37)
[2019-09-22] MEDS: metoprolol succinate 25mg (24-HOUR) SR. Tablet PO SCH (07:38)
[2019-09-22] MEDS: clopidogrel 75mg tablet PO SCH (07:39)
[2019-09-22] MEDS: aspirin 81mg tablet.DR PO SCH (07:39)
[2019-09-22] MEDS: enoxaparin 40mg/0.4ml syringe SUBCUT SCH (07:41)
[2019-09-22] MEDS: CefTRIAXone 2gm/D5W 50ml 50 ML IV SCH (07:43)
[2019-09-22] MEDS: K and/or MAG REPLACEMENT MC SCH (08:00)
[2019-09-22] MEDS: insulin Lispro (HumaLOG) vial - multi-dose SQ SCH (08:20)
[2019-09-22] MEDS ORDERED: FURO40TA4 PO (10:52)
[2019-09-22] MEDS ORDERED: CLOP75TA35 PO (10:52)
[2019-09-22] MEDS ORDERED: CEFD300C3 PO (10:52)
[2019-09-22] MEDS ORDERED: ASPI-1071 PO (10:52)
[2019-09-22] MEDS ORDERED: POTA10CA44 PO (10:53)
[2019-09-22 11:00] VITALS: BP 132/57
--- NOTE | 2019-09-22 11:15 | NUR ---
Entered pt's room to discuss discharge information, visitor at bedside. Pt anxious, complaining of pain and nausea. Visitor stated "she's not ready to leave, she's too sick". Pt complaining of feeling nauseous and in pain "all day". Pt did not complain of any GI distress or pain to this RN this shift. Case management notified, Dr. Hitchcock notified of pt's reluctance to discharge.
--- NOTE | 2019-09-22 14:40 | NUR ---
Discharge information, including medications, f/u appt & S&S of worsening condition reviewed with pt and pt's son. Pt had opportunity to ask questions. IVs removed, cannulae intact. Tele box removed & returned to telephone station installer. All pt belongings gathered up and sent with pt. New medications called in to [facility] pharmacy. F/U appt scheduled for 10/04/19 at 1520. Pt transported to [facility] via wheelchair where she ambulated independently to private vehicle.
== END 2019-09-22 14:35 | disposition home or self-care (01) | DRG 871 ==
LOC: ER 08:43 → ED HOLD 11:29 → PCU 3S 14:20
PROVIDERS: ADMIT Hospitalist; ATTEND Hospitalist
DX: A41.51 Sepsis due to Escherichia coli [E. coli] (principal); I21.4 Non-ST elevation (NSTEMI) myocardial infarction; J18.9 Pneumonia, unspecified organism; N39.0 Urinary tract infection, site not specified; Z68.43 Body mass index [BMI] 50.0-59.9, adult; N17.9 Acute kidney failure, unspecified; E11.42 Type 2 diabetes mellitus with diabetic polyneuropathy; E11.65 Type 2 diabetes mellitus with hyperglycemia; E66.01 Morbid (severe) obesity due to excess calories; E83.42 Hypomagnesemia; E87.6 Hypokalemia; E11.22 Type 2 diabetes mellitus with diabetic chronic kidney disease; N18.3 Chronic kidney disease, stage 3 (moderate); G47.30 Sleep apnea, unspecified; I45.9 Conduction disorder, unspecified; I50.9 Heart failure, unspecified; M19.90 Unspecified osteoarthritis, unspecified site; K57.90 Diverticulosis of intestine, part unspecified, without perforation or abscess without bleeding; R65.20 Severe sepsis without septic shock; Z79.82 Long term (current) use of aspirin; Z85.89 Personal history of malignant neoplasm of other organs and systems; Z90.49 Acquired absence of other specified parts of digestive tract; Z90.710 Acquired absence of both cervix and uterus; Z91.048 Other nonmedicinal substance allergy status; Z91.19 Patient's noncompliance with other medical treatment and regimen; Z99.3 Dependence on wheelchair; Z88.0 Allergy status to penicillin; Z88.5 Allergy status to narcotic agent; Z79.899 Other long term (current) drug therapy; Z79.4 Long term (current) use of insulin
CPT/HCPCS: 36415; 71045; 74176; 76937; 80048; 80053; 80061; 81001; 82948; 83036; 83605; 83690; 83735; 83880; 84145; 84484; 85025; 85610; 85730; 87040; 87077; 87081; 87088; 87186; 93005; 93306; 96365; 96366; 96368; 97110; 97116; 97162; 97530; 99285; G0378; J0696; J1644; J1650; J1815; J1940; J2270; J2405; J3475; J3490; J7030

== ENCOUNTER 2021-09-26 12:58 | Emergency (ER) | payer OTHER, MEDICARE ==
[~2021-09-26] VITALS: Ht 154.9 cm; Wt 117.7 kg
[~2021-09-26 12:58] MED LIST changes: +ASPI-1071 PO; -CETI-1 PO; +CHOL400T14 PO; +CLOP75TA34 PO; +DOXE10CA2 PO; +DULA1.5P SQ; +FURO40TA4 PO; +HYDR-3686 PO; +INSU100C4 SQ; +LOSA50TA64 PO; -MONT10TA21 PO; +NABU-139 PO; +NITR0.4T48 SL; -OLME40TA13 PO; -RANI-648 PO; +TIZA4CAP PO; -TIZA4TAB11 PO
[2021-09-26 14:31] LABS: BASOPHILS # (AUTO) 0.1 X10'3 (0-0.2); BASOPHILS % (AUTO) 1.3 % (0-1); EOSINOPHILS # (AUTO) 0.2 X10'3 (0-0.9); EOSINOPHILS % (AUTO) 2.3 % (0-6); LYMPHOCYTES # (AUTO) 1.4 X10'3 (1.1-4.8); LYMPHOCYTES % (AUTO) 16.7 % (21-51); MEAN CORPUSCULAR HEMOGLOBIN 24.1 PG (27.0-31.0); MEAN CORPUSCULAR HGB CONC 31.6 g/dL (33.0-36.5); MEAN CORPUSCULAR VOLUME 76.3 FL (78-98); MEAN PLATELET VOLUME 7.3 FL (7.4-10.4); MONOCYTES # (AUTO) 0.7 X10'3 (0-0.9); MONOCYTES % (AUTO) 7.8 % (2-12); NEUTROPHILS % (AUTO) 71.9 % (42-75); PLATELET COUNT 461 X10'3 (140-440); RED BLOOD COUNT 4.59 X10'6 (4.20-5.60); RED CELL DISTRIBUTION WIDTH 18.2 % (11.5-14.5); WHITE BLOOD COUNT 8.3 X10'3 (4.5-11.0)
[2021-09-26 14:41] LABS: ALANINE AMINOTRANSFERASE 30 U/L (12-78); ALBUMIN 2.1 G/DL (3.4-5.0); ALBUMIN/GLOBULIN RATIO 0.5 (1.1-1.5); ALKALINE PHOSPHATASE 340 IU/L (46-116); ANION GAP 5 (8-16); ASPARTATE AMINO TRANSFERASE 51 U/L (10-37); BILIRUBIN,TOTAL 0.6 MG/DL (0.1-1.0); BLOOD UREA NITROGEN 11 MG/DL (7-18); BUN/CREATININE RATIO 9.6 (6.6-38.0); CALCIUM 8.4 MG/DL (8.5-10.1); CHLORIDE 103 MMOL/L (99-107); CREATININE 1.15 MG/DL (0.40-0.90); GLUCOSE 419 MG/DL (70-104); POTASSIUM 3.9 MMOL/L (3.5-5.1); SODIUM 137 MMOL/L (135-145); TOTAL CARBON DIOXIDE 29.5 MMOL/L (24-32); TOTAL PROTEIN 6.4 G/DL (6.4-8.2); eGFR 47 ML/MIN
[2021-09-26 21:25] VITALS: BP 165/87
== END 2021-09-26 21:28 | disposition home or self-care (01) ==
LOC: ER 12:59
DX: L98.499 Non-pressure chronic ulcer of skin of other sites with unspecified severity (principal); I50.9 Heart failure, unspecified; M19.90 Unspecified osteoarthritis, unspecified site; E11.42 Type 2 diabetes mellitus with diabetic polyneuropathy; Z56.0 Unemployment, unspecified; Z90.49 Acquired absence of other specified parts of digestive tract; Z90.710 Acquired absence of both cervix and uterus; Z88.0 Allergy status to penicillin; Z88.5 Allergy status to narcotic agent; Z79.82 Long term (current) use of aspirin; Z79.899 Other long term (current) drug therapy
CPT/HCPCS: 36415; 80053; 83605; 84145; 85025; 87040; 99283

== ENCOUNTER 2021-12-23 04:41 | Inpatient (IN) | payer OTHER, MEDICARE ==
[~2021-12-23] VITALS: Ht 154.9 cm; Wt 95.5 kg
[2021-12-23] MEDS ORDERED: albuterol 2.5 MG/3 ML nebule NEB ONE (04:55)
[2021-12-23 05:06] LABS: BASOPHILS # (AUTO) 0.1 X10'3 (0-0.2); BASOPHILS % (AUTO) 1.5 % (0-1); EOSINOPHILS # (AUTO) 0.6 X10'3 (0-0.9); EOSINOPHILS % (AUTO) 7.4 % (0-6); HEMATOCRIT 30.1 % (35.0-45.0); HEMOGLOBIN 9.7 g/dl (12.0-16.0); LYMPHOCYTES # (AUTO) 1.7 X10'3 (1.1-4.8); MEAN CORPUSCULAR HGB CONC 32.1 g/dL (33.0-36.5); MEAN CORPUSCULAR VOLUME 74.7 FL (78-98); MEAN PLATELET VOLUME 7.8 FL (7.4-10.4); MONOCYTES # (AUTO) 0.9 X10'3 (0-0.9); MONOCYTES % (AUTO) 11.8 % (2-12); NEUTROPHILS # (AUTO) 4.3 X10'3 (1.8-7.7); NEUTROPHILS % (AUTO) 56.3 % (42-75); PLATELET COUNT 263 X10'3 (140-440); RED BLOOD COUNT 4.02 X10'6 (4.20-5.60); RED CELL DISTRIBUTION WIDTH 17.9 % (11.5-14.5); WHITE BLOOD COUNT 7.6 X10'3 (4.5-11.0)
[2021-12-23 05:16] LABS: APTT 23 SECONDS (22-32); D-DIMER 0.94 MG/L FEU (0-0.50)
[2021-12-23 05:27] LABS: ALANINE AMINOTRANSFERASE 23 U/L (12-78); ALBUMIN 2.1 G/DL (3.4-5.0); ALBUMIN/GLOBULIN RATIO 0.6 (1.1-1.5); ALKALINE PHOSPHATASE 256 IU/L (46-116); ANION GAP 5 (8-16); ASPARTATE AMINO TRANSFERASE 32 U/L (10-37); BILIRUBIN,TOTAL 0.5 MG/DL (0.1-1.0); BLOOD UREA NITROGEN 15 MG/DL (7-18); BUN/CREATININE RATIO 13.6 (6.6-38.0); CALCIUM 7.8 MG/DL (8.5-10.1); CHLORIDE 107 MMOL/L (99-107); GLUCOSE 269 MG/DL (70-104); SODIUM 140 MMOL/L (135-145); TOTAL CARBON DIOXIDE 27.8 MMOL/L (24-32); TOTAL PROTEIN 5.6 G/DL (6.4-8.2); eGFR 49 ML/MIN
[2021-12-23 05:28] LABS: POTASSIUM 4.3 MMOL/L (3.5-5.1)
[2021-12-23] MEDS ORDERED: levoFLOXACIN-Levaquin 750MG/D5 150 ML IV STA (05:30)
[2021-12-23] MEDS ORDERED: albuterol 2.5 MG/3 ML nebule ONE (05:35)
--- NOTE | 2021-12-23 05:39 | NUR ---
FREEFORM PURWICK PLACED. URINE DRAINING APPORPRIATELY. GRACIA COLORED AND CLEAR
[2021-12-23] MEDS ORDERED: labetalol 20mg/4ml (5mg/ml) syringe IV ONE (05:40)
[2021-12-23] MEDS ORDERED: INSU100I8 SQ (05:42)
[2021-12-23] MEDS ORDERED: amLODIPine 5mg tablet PO ONE (06:25)
[2021-12-23] MEDS ORDERED: amLODIPine 2.5mg tablet PO ONE (06:25)
[2021-12-23] MEDS ORDERED: ondansetron/PF 4mg/2ml inj IV PRN (07:35)
[2021-12-23] MEDS ORDERED: magnesium 2GM in 50ml NS 50 ML IV PRN (07:35)
[2021-12-23] MEDS ORDERED: acetaminophen 325mg tablet PO PRN (07:35)
[2021-12-23] MEDS ORDERED: potassium CL 10mEq/100ml bag 100 ML IV PRN (07:35)
[2021-12-23] MEDS ORDERED: magnesium 4gm in 100ml NS 100 ML IV PRN (07:35)
[2021-12-23] MEDS ORDERED: potassium Cl 20 mEq SR tablet PO PRN ×2 (07:35)
[2021-12-23] MEDS ORDERED: MESSAGE TO PHARMACY PO ONE (07:35)
[2021-12-23] MEDS ORDERED: REMDESIVIR INJ 200 MG in normal saline 100ml IV soln 100 ML IV ONE (07:35)
[2021-12-23] MEDS ORDERED: DEXTROSE 15 GM of carb/4 tabs (each vial/BOTTLE has 4 tablets) PO PRN ×2 (07:35)
[2021-12-23] MEDS ORDERED: dextrose 50%-water 50ml dispensing syringe IV PRN ×2 (07:35)
[2021-12-23] MEDS ORDERED: glucagon, human recombinant 1mg kit SUBCUT PRN (07:35)
[2021-12-23] MEDS ORDERED: magnesium hydroxide 30ml (MOM) UD suspension PO PRN (07:35)
[2021-12-23] MEDS ORDERED: ALBUTEROL INHALER 1 PUFF/90 MCG INHALER IH PRN (07:40)
[2021-12-23] MEDS: K and/or MAG REPLACEMENT MC SCH ×2 (08:00→20:00)
[2021-12-23] MEDS: docusate sod 100mg capsule PO SCH ×2 (08:00→19:53)
[2021-12-23] MEDS ORDERED: enoxaparin 40mg/0.4ml syringe SQ SCH (08:00)
[2021-12-23] MEDS ORDERED: DEXAMETHASONE 6 MG TABLET PO SCH (08:00)
[2021-12-23] MEDS ORDERED: REMDESIVIR INJ 100 MG in normal saline 100ml IV soln 100 ML IV SCH (08:00)
--- NOTE | 2021-12-23 08:31 | NUR ---
called dr diaz regarding pt continued high blood pressure. received verbal order for hydralazine 10mg iv x1 dose now. order placed as received.
[2021-12-23] MEDS ORDERED: hydrALAZINE 20mg/ml inj. IV ONE (08:35)
[2021-12-23 08:39] LABS: HEMOGLOBIN A1C 10.9 % (4.5-6.2)
[2021-12-23 08:48] LABS: C-REACTIVE PROTEIN 0.59 MG/DL (0.0-0.5)
[2021-12-23] MEDS: dexamethasone inj 6 MG in dextrose 5%-water 50ml 50 ML IV SCH ×2 (08:48→21:26)
[2021-12-23] MEDS ORDERED: GABA300T25 PO (08:54)
[2021-12-23] MEDS ORDERED: METH-797 PO (08:54)
[2021-12-23] MEDS ORDERED: HYDR-3686 PO (08:54)
[2021-12-23] MEDS ORDERED: METO-411 PO (08:54)
[2021-12-23] MEDS ORDERED: FEXO-271 PO (09:02)
[2021-12-23] MEDS ORDERED: CELE-85 PO (09:02)
[2021-12-23] MEDS ORDERED: AMLO10TA13 PO (09:02)
[2021-12-23] MEDS ORDERED: LOSA100T57 PO (09:02)
[2021-12-23] MEDS ORDERED: CHOL200074 PO (09:02)
[2021-12-23] MEDS ORDERED: DIPH-1055 PO (09:02)
[2021-12-23] MEDS ORDERED: LANTUS SQ (09:02)
[2021-12-23] MEDS ORDERED: FURO-150 PO (09:05)
--- NOTE | 2021-12-23 09:07 | NUR ---
med rec completed with pt bag of meds at bedside and with pt.
--- NOTE | 2021-12-23 09:30 | NUR ---
spoke with hospitalist joe regarding pt blood sugar 264. pt did not get her am lantus dosage due to admission/med rec completion times. per joe, give a dose of correction humulin to match her current blood sugar and do not do nutritional dose correction as she didnt eat breakfast and currently isnt hungry. called pharmacy to receive the multi-dose vial of insulin when it is ready so it can be administered per protocol/joe verbal order.
--- NOTE | 2021-12-23 09:40 | NUR ---
Pharmacy called for short-acting insulin; they will bring it to ED.
[2021-12-23] MEDS ORDERED: furosemide 40mg/4ml inj IV ONE (10:20)
--- NOTE | 2021-12-23 11:07 | NUR ---
gave pt snack as she hadnt eaten all day. still awaiting multi-dose insulin vial from pharmacy as "it is not ready yet."
[2021-12-23] MEDS: insulin Lispro (HumaLOG) vial - multi-dose SQ SCH ×3 (12:52→21:23)
--- NOTE | 2021-12-23 13:56 | NUR ---
dr diaz paged in regards to patient blood pressure of 196/90. 10mg hydralazine ordered prn 6 hours for HBP
[2021-12-23] MEDS: hydrALAZINE 20mg/ml inj. IV PRN (14:06)
[2021-12-23] MEDS ORDERED: GABA300C PO ×2 (17:08→17:10)
--- NOTE | 2021-12-23 17:31 | NUR ---
attempt for report x1
--- NOTE | 2021-12-23 17:46 | NUR ---
RECEIVED REPORT FROM COBY BEACH
--- NOTE | 2021-12-23 18:42 | NUR ---
Problems reprioritized. Patient report given, questions answered & plan of care reviewed with SHADY BEACH.
[2021-12-23 19:00] VITALS: BP 187/79
[2021-12-23] MEDS: furosemide 20MG tablet PO SCH (19:49)
[2021-12-23] MEDS: celeCOXIB 100mg capsule PO PRN (19:49)
[2021-12-23] MEDS: metoprolol succinate 25mg (24-HOUR) SR. Tablet PO SCH (19:49)
[2021-12-23] MEDS: gabapentin 300mg capsule PO PRN (19:49)
[2021-12-23] MEDS: enoxaparin 40mg/0.4ml syringe SQ SCH (19:50)
[2021-12-23] MEDS: insulin glargine (Lantus) pen - multi-dose SQ SCH (21:24)
[2021-12-23 22:00] VITALS: BP 130/67
[2021-12-24 02:00] VITALS: BP 178/72
[2021-12-24] MEDS: hydrALAZINE 20mg/ml inj. IV PRN (03:17)
[2021-12-24 05:12] LABS: BASOPHILS % (AUTO) 0.4 % (0-1); EOSINOPHILS % (AUTO) 0 % (0-6); HEMATOCRIT 30.7 % (35.0-45.0); HEMOGLOBIN 9.8 g/dl (12.0-16.0); LYMPHOCYTES # (AUTO) 0.9 X10'3 (1.1-4.8); LYMPHOCYTES % (AUTO) 12.6 % (21-51); MEAN CORPUSCULAR HEMOGLOBIN 23.3 PG (27.0-31.0); MEAN CORPUSCULAR HGB CONC 31.7 g/dL (33.0-36.5); MEAN CORPUSCULAR VOLUME 73.5 FL (78-98); MEAN PLATELET VOLUME 7.6 FL (7.4-10.4); MONOCYTES # (AUTO) 0.3 X10'3 (0-0.9); MONOCYTES % (AUTO) 4.1 % (2-12); NEUTROPHILS # (AUTO) 6.2 X10'3 (1.8-7.7); NEUTROPHILS % (AUTO) 82.9 % (42-75); PLATELET COUNT 264 X10'3 (140-440); RED BLOOD COUNT 4.18 X10'6 (4.20-5.60); WHITE BLOOD COUNT 7.5 X10'3 (4.5-11.0)
[2021-12-24 05:26] LABS: D-DIMER 0.67 MG/L FEU (0-0.50)
[2021-12-24 05:53] LABS: ALANINE AMINOTRANSFERASE 21 U/L (12-78); ALBUMIN 2.2 G/DL (3.4-5.0); ALBUMIN/GLOBULIN RATIO 0.6 (1.1-1.5); ALKALINE PHOSPHATASE 228 IU/L (46-116); ANION GAP 8 (8-16); ASPARTATE AMINO TRANSFERASE 24 U/L (10-37); BILIRUBIN,TOTAL 0.5 MG/DL (0.1-1.0); BLOOD UREA NITROGEN 18 MG/DL (7-18); C-REACTIVE PROTEIN 0.37 MG/DL (0.0-0.5); CALCIUM 8.3 MG/DL (8.5-10.1); CHLORIDE 103 MMOL/L (99-107); CREATININE 1.06 MG/DL (0.40-0.90); GLUCOSE 248 MG/DL (70-104); MAGNESIUM 1.8 MG/DL (1.5-2.4); SODIUM 137 MMOL/L (135-145); TOTAL PROTEIN 5.7 G/DL (6.4-8.2); eGFR 51 ML/MIN
[2021-12-24 06:00] VITALS: BP 154/73
--- NOTE | 2021-12-24 07:10 | NUR ---
Patient in room ORTHO 4010. I have received report from SHADY BEACH and had the opportunity to ask questions and assume patient care.
[2021-12-24] MEDS: K and/or MAG REPLACEMENT MC SCH ×2 (07:17→20:00)
[2021-12-24] MEDS: metoprolol succinate 25mg (24-HOUR) SR. Tablet PO SCH ×2 (07:37→19:20)
[2021-12-24] MEDS: enoxaparin 40mg/0.4ml syringe SQ SCH ×2 (07:37→19:19)
[2021-12-24] MEDS: losartan 50mg tablet PO SCH (07:38)
[2021-12-24] MEDS: duloxetine 30mg CAPSULE.DR PO SCH (07:39)
[2021-12-24] MEDS: loratadine 10mg tablet PO SCH (07:39)
[2021-12-24] MEDS: amLODIPine 5mg tablet PO SCH (07:39)
[2021-12-24] MEDS: aspirin 81mg, enteric-coated 1 TAB TABLET.DR PO SCH (07:39)
[2021-12-24] MEDS: docusate sod 100mg capsule PO SCH ×2 (07:40→19:14)
[2021-12-24] MEDS: dexamethasone inj 6 MG in dextrose 5%-water 50ml 50 ML IV SCH ×2 (07:40→19:40)
[2021-12-24] MEDS: furosemide 20MG tablet PO SCH ×2 (07:40→19:21)
[2021-12-24] MEDS: cholecalciferol (vitamin D3) 1,000 unit (25mcg) tablet PO SCH (07:40)
[2021-12-24] MEDS: azithromycin/NS 500mg/250ml 250 ML IV SCH (07:40)
[2021-12-24] MEDS: insulin Lispro (HumaLOG) vial - multi-dose SQ SCH ×4 (08:48→21:45)
[2021-12-24 10:00] VITALS: BP_SYST 158; BP_SYST 170; BP_DIAS 68
[2021-12-24] MEDS ORDERED: albuterol 2.5 MG/3 ML nebule NEB PRN (10:35)
[2021-12-24] MEDS: celeCOXIB 100mg capsule PO PRN (10:55)
--- NOTE | 2021-12-24 11:40 | NUR ---
DM consult: Pt with T2DM, poorly controlled with A1c 10.9%. Noted pt admit for acute respiratory failure secondary to COVID PNA. Unable to reach pt via TC at this time, will attempt verbal education at another time. Written DM education with RD contact information placed in patient's chart. Will continue to follow. Addendum: 12/24/21 at [address] Amended: Links added.
--- NOTE | 2021-12-24 12:48 | NUR ---
PER PT PATIENT AMBULATED WELL AND MAINTAINED O2 SATS IN MID 90'S ON 1 L NC. PATIENT SITTING UPRIGHT IN RECLINING CHAIR NOW, BREATHING APPEARS TO BE MUCH EASIER, DESPITE EATING LUNCH
[2021-12-24 14:00] VITALS: BP 108/73
--- NOTE | 2021-12-24 15:42 | NUR ---
WOUND INFECTION EDUCATION PROVIDED BY WOUND CARE 1. Patient instructed to call their primary doctor, or go the ED immediately if any of the following symptoms occur: * Increased pain in wound * Increase in drainage from the wound * Redness in the skin surrounding the wound * Warmth in the skin surrounding the wound * Bleeding from the wound * Temperature of 101 or greater 2. If any of these occur while in the hospital tell a nurse immediately. Addendum: 12/24/21 at 1542 by Elif Fernandez LVN Amended: Links added.
[2021-12-24] MEDS: ipratropium/albuterol 3ml nebule NEB SCH ×2 (15:49→21:19)
[2021-12-24 18:00] VITALS: BP 176/70
--- NOTE | 2021-12-24 18:22 | NUR ---
Problems reprioritized. Patient report given, questions answered & plan of care reviewed with AMANDEEP BEACH.
[2021-12-24] MEDS: budesonide 0.5mg/2ml UD nebule IH SCH (21:19)
[2021-12-24] MEDS: insulin glargine (Lantus) pen - multi-dose SQ SCH (21:49)
[2021-12-24 21:56] VITALS: BP 188/74
[2021-12-25] VITALS (7 sets, daily range): BP systolic 150–208; BP diastolic 54–88
[2021-12-25] MEDS: hydrALAZINE 20mg/ml inj. IV PRN ×2 (01:12→07:39)
[2021-12-25] MEDS: celeCOXIB 100mg capsule PO PRN (01:28)
--- NOTE | 2021-12-25 02:29 | NUR ---
Student documentation: I have reviewed interventions, assessments performed and documented by Claudia LEDEZMA [facility].
[2021-12-25] MEDS: gabapentin 300mg capsule PO PRN (04:35)
--- NOTE | 2021-12-25 06:17 | NUR ---
Problems reprioritized. Patient report given, questions answered & plan of care reviewed with BAYLEE Cevallos.
--- NOTE | 2021-12-25 06:40 | NUR ---
Patient in room ORTHO 4010. I have received report from AMANDEEP BEACH and had the opportunity to ask questions and assume patient care.
[2021-12-25 06:53] LABS: BASOPHILS % (AUTO) 0.1 % (0-1); D-DIMER 0.45 MG/L FEU (0-0.50); EOSINOPHILS % (AUTO) 0 % (0-6); HEMATOCRIT 29.8 % (35.0-45.0); HEMOGLOBIN 9.4 g/dl (12.0-16.0); LYMPHOCYTES # (AUTO) 1.5 X10'3 (1.1-4.8); LYMPHOCYTES % (AUTO) 16.2 % (21-51); MEAN CORPUSCULAR HEMOGLOBIN 23.9 PG (27.0-31.0); MEAN CORPUSCULAR HGB CONC 31.5 g/dL (33.0-36.5); MEAN CORPUSCULAR VOLUME 75.9 FL (78-98); MEAN PLATELET VOLUME 7.7 FL (7.4-10.4); MONOCYTES # (AUTO) 0.7 X10'3 (0-0.9); MONOCYTES % (AUTO) 8.1 % (2-12); NEUTROPHILS # (AUTO) 6.7 X10'3 (1.8-7.7); NEUTROPHILS % (AUTO) 75.6 % (42-75); PLATELET COUNT 265 X10'3 (140-440); RED BLOOD COUNT 3.93 X10'6 (4.20-5.60); RED CELL DISTRIBUTION WIDTH 18.6 % (11.5-14.5); WHITE BLOOD COUNT 8.9 X10'3 (4.5-11.0)
[2021-12-25] MEDS: enoxaparin 40mg/0.4ml syringe SQ SCH (07:07)
[2021-12-25] MEDS: duloxetine 30mg CAPSULE.DR PO SCH (07:07)
[2021-12-25] MEDS: amLODIPine 5mg tablet PO SCH (07:13)
[2021-12-25] MEDS: furosemide 20MG tablet PO SCH (07:14)
[2021-12-25] MEDS: docusate sod 100mg capsule PO SCH (07:14)
[2021-12-25] MEDS: dexamethasone inj 6 MG in dextrose 5%-water 50ml 50 ML IV SCH (07:14)
[2021-12-25] MEDS: loratadine 10mg tablet PO SCH (07:14)
[2021-12-25] MEDS: cholecalciferol (vitamin D3) 1,000 unit (25mcg) tablet PO SCH (07:14)
[2021-12-25] MEDS: losartan 50mg tablet PO SCH (07:14)
[2021-12-25] MEDS: aspirin 81mg, enteric-coated 1 TAB TABLET.DR PO SCH (07:14)
[2021-12-25 07:18] LABS: ALANINE AMINOTRANSFERASE 20 U/L (12-78); ALBUMIN 2.2 G/DL (3.4-5.0); ALBUMIN/GLOBULIN RATIO 0.7 (1.1-1.5); ALKALINE PHOSPHATASE 205 IU/L (46-116); ANION GAP 9 (8-16); ASPARTATE AMINO TRANSFERASE 24 U/L (10-37); BILIRUBIN,TOTAL 0.4 MG/DL (0.1-1.0); BLOOD UREA NITROGEN 25 MG/DL (7-18); BUN/CREATININE RATIO 21.9 (6.6-38.0); C-REACTIVE PROTEIN 0.14 MG/DL (0.0-0.5); CALCIUM 8.4 MG/DL (8.5-10.1); CHLORIDE 103 MMOL/L (99-107); CREATININE 1.14 MG/DL (0.40-0.90); GLUCOSE 264 MG/DL (70-104); MAGNESIUM 2.1 MG/DL (1.5-2.4); SODIUM 135 MMOL/L (135-145); TOTAL CARBON DIOXIDE 23.4 MMOL/L (24-32); TOTAL PROTEIN 5.5 G/DL (6.4-8.2); eGFR 47 ML/MIN
[2021-12-25] MEDS: budesonide 0.5mg/2ml UD nebule IH SCH (07:54)
[2021-12-25] MEDS: ipratropium/albuterol 3ml nebule NEB SCH (07:54)
[2021-12-25] MEDS: K and/or MAG REPLACEMENT MC SCH (08:00)
[2021-12-25] MEDS: metoprolol succinate 25mg (24-HOUR) SR. Tablet PO SCH (08:20)
[2021-12-25] MEDS: azithromycin/NS 500mg/250ml 250 ML IV SCH (08:26)
[2021-12-25] MEDS: insulin Lispro (HumaLOG) vial - multi-dose SQ SCH ×2 (09:37→13:10)
--- NOTE | 2021-12-25 09:48 | NUR ---
am blood sugar high, per protocol increased level from 4 to 5. insulin dosed according to sliding scale, unable to dose nutrition coverage, pt tray removed by another staff member, no food total recorded. Charge nurse aware
[2021-12-25] MEDS ORDERED: AZIT500T9 PO (13:04)
[2021-12-25] MEDS ORDERED: ALBU2.5V7 NEB (13:04)
[2021-12-25] MEDS ORDERED: PRED20TA PO (13:04)
[2021-12-25] MEDS ORDERED: BUDE0.5A3 IH (13:04)
[2021-12-25] MEDS ORDERED: IPRA3AMP9 NEB (13:04)
--- NOTE | 2021-12-25 13:58 | NUR ---
discharged patient, instructions given for follow up and health maintenance per MD orderes, PIV removed, wheelchair to car outside with family
== END 2021-12-25 13:55 | disposition home or self-care (01) | DRG 177 ==
LOC: ER 04:41 → ED HOLD 07:39 → ORTHO 4S 18:43
PROVIDERS: ADMIT Family Medicine; ATTEND Family Medicine
DX: U07.1 COVID-19 (principal); J96.01 Acute respiratory failure with hypoxia; J12.82 Pneumonia due to coronavirus disease 2019; I13.0 Hypertensive heart and chronic kidney disease with heart failure and stage 1 through stage 4 chronic kidney disease, or unspecified chronic kidney disease; I50.32 Chronic diastolic (congestive) heart failure; J44.0 Chronic obstructive pulmonary disease with (acute) lower respiratory infection; J44.1 Chronic obstructive pulmonary disease with (acute) exacerbation; N17.9 Acute kidney failure, unspecified; D50.9 Iron deficiency anemia, unspecified; D72.10 Eosinophilia, unspecified; E11.22 Type 2 diabetes mellitus with diabetic chronic kidney disease; E11.42 Type 2 diabetes mellitus with diabetic polyneuropathy; E11.65 Type 2 diabetes mellitus with hyperglycemia; E66.01 Morbid (severe) obesity due to excess calories; I25.10 Atherosclerotic heart disease of native coronary artery without angina pectoris; I48.91 Unspecified atrial fibrillation; Z96.651 Presence of right artificial knee joint; M19.90 Unspecified osteoarthritis, unspecified site; N18.9 Chronic kidney disease, unspecified; Z79.4 Long term (current) use of insulin; Z79.82 Long term (current) use of aspirin; I25.2 Old myocardial infarction; Z78.9 Other specified health status; Z79.899 Other long term (current) drug therapy; Z80.1 Family history of malignant neoplasm of trachea, bronchus and lung; Z85.028 Personal history of other malignant neoplasm of stomach; Z90.49 Acquired absence of other specified parts of digestive tract; Z90.710 Acquired absence of both cervix and uterus; Z79.84 Long term (current) use of oral hypoglycemic drugs; Z68.39 Body mass index [BMI] 39.0-39.9, adult; Z88.0 Allergy status to penicillin; Z88.5 Allergy status to narcotic agent; Z88.8 Allergy status to other drugs, medicaments and biological substances; Z56.0 Unemployment, unspecified
CPT/HCPCS: 36415; 71045; 80053; 82948; 83036; 83605; 83735; 83880; 84145; 84484; 85025; 85379; 85610; 85730; 86140; 87081; 87502; 87503; 87635; 93005; 93306; 94640; 94667; 94760; 96365; 96366; 96375; 97116; 97161; 97530; 99285; C9803; G0378; J0360; J0456; J1100; J1650; J1815; J1940; J1956; J3490; J7060

== ENCOUNTER 2022-12-08 14:42 | Emergency (ER) | payer MEDICARE, OTHER ==
[~2022-12-08] VITALS: Ht 154.9 cm; Wt 102.7 kg
[~2022-12-08 14:42] MED LIST changes: +ALBU2.5V7 NEB; +AMLO10TA13 PO; -AMLO2.5T2 PO; +AZIT500T9 PO; +BUDE0.5A3 IH; +CELE-85 PO; +CHOL200074 PO; -CHOL400T14 PO; -CLOP75TA34 PO; +DIPH-1055 PO; -DOXE10CA2 PO; +FEXO-271 PO; +FURO-150 PO; -FURO40TA4 PO; +GABA300C PO; -INSU100C4 SQ; +INSU100I8 SQ; +IPRA3AMP9 NEB; +LANTUS SQ; +LOSA100T57 PO; -LOSA50TA64 PO; +METH-797 PO; +METO-411 PO; -METO50TA7 PO; -NABU-139 PO; -NITR0.4T48 SL; +PRED20TA PO; -TIZA4CAP PO
[2022-12-08 17:41] LABS: BASOPHILS # (AUTO) 0.2 X10'3 (0-0.2); BASOPHILS % (AUTO) 2.4 % (0-1); EOSINOPHILS # (AUTO) 0.4 X10'3 (0-0.9); EOSINOPHILS % (AUTO) 4.4 % (0-6); HEMOGLOBIN 10.5 g/dl (12.0-16.0); MONOCYTES # (AUTO) 0.9 X10'3 (0-0.9)
[2022-12-08 17:43] LABS: HEMATOCRIT 33.9 % (35.0-45.0); LYMPHOCYTES # (AUTO) 2.6 X10'3 (1.1-4.8); LYMPHOCYTES % (AUTO) 30.1 % (21-51); MEAN CORPUSCULAR HEMOGLOBIN 22.4 PG (27.0-31.0); MEAN CORPUSCULAR VOLUME 72.2 FL (78-98); MEAN PLATELET VOLUME 7.1 FL (7.4-10.4); MONOCYTES % (AUTO) 10.8 % (2-12); NEUTROPHILS # (AUTO) 4.6 X10'3 (1.8-7.7); NEUTROPHILS % (AUTO) 52.3 % (42-75); PLATELET COUNT 312 X10'3 (140-440); RED CELL DISTRIBUTION WIDTH 17.8 % (11.5-14.5); WHITE BLOOD COUNT 8.7 X10'3 (4.5-11.0)
[2022-12-08 17:59] LABS: ALANINE AMINOTRANSFERASE 21 U/L (12-78); ALBUMIN 2.9 G/DL (3.4-5.0); ALBUMIN/GLOBULIN RATIO 0.7 (1.1-1.5); ALKALINE PHOSPHATASE 234 IU/L (46-116); ANION GAP 9 (8-16); ASPARTATE AMINO TRANSFERASE 23 U/L (10-37); BILIRUBIN,TOTAL 0.4 MG/DL (0.1-1.0); BLOOD UREA NITROGEN 18 MG/DL (7-18); BUN/CREATININE RATIO 14.5 (10.0-20.0); CALCIUM 8.7 MG/DL (8.5-10.1); CHLORIDE 102 MMOL/L (99-107); CREATININE 1.24 MG/DL (0.40-0.90); GLUCOSE 218 MG/DL (70-104); POTASSIUM 3.2 MMOL/L (3.5-5.1); SODIUM 140 MMOL/L (135-145); TOTAL CARBON DIOXIDE 29.1 MMOL/L (24-32); TOTAL PROTEIN 6.9 G/DL (6.4-8.2); eGFR 43 ML/MIN
[2022-12-08 18:32] LABS: TOTAL CELLS COUNTED 100
[2022-12-08 18:33] LABS: ANISOCYTOSIS 1+; MICROCYTOSIS 1+; PLATELET ESTIMATE NORMAL
[2022-12-08 18:37] LABS: ETHANOL < 0.010 GM/DL (0.0-0.010)
--- NOTE | 2022-12-08 22:00 | NUR ---
Pt contacted at this time, per pt request, for pt transportation home; Pt , Nessa Robert, [place] [facility]; Nessa's phone number: [phone]; Pt notified and verbalizes understanding
[2022-12-08 22:02] VITALS: BP 142/81
== END 2022-12-08 22:20 | disposition home or self-care (01) ==
LOC: ER 14:42
DX: R56.9 Unspecified convulsions (principal); I11.9 Hypertensive heart disease without heart failure; E11.9 Type 2 diabetes mellitus without complications; Z90.49 Acquired absence of other specified parts of digestive tract; Z98.890 Other specified postprocedural states; Z88.8 Allergy status to other drugs, medicaments and biological substances; Z88.5 Allergy status to narcotic agent; Z88.1 Allergy status to other antibiotic agents; Z79.899 Other long term (current) drug therapy; Z79.1 Long term (current) use of non-steroidal anti-inflammatories (NSAID); Z79.2 Long term (current) use of antibiotics; Z79.82 Long term (current) use of aspirin; W06.XXXA Fall from bed, initial encounter; Y93.89 Activity, other specified; Y92.89 Other specified places as the place of occurrence of the external cause; Y99.8 Other external cause status
CPT/HCPCS: 36415; 70450; 71045; 80053; 80320; 84484; 85007; 85025; 93005; 99285

== ENCOUNTER 2023-07-09 20:16 | Inpatient (IN) | payer MEDICARE, OTHER ==
[~2023-07-09] VITALS: Ht 154.9 cm; Wt 120.5 kg
[~2023-07-09 20:16] MED LIST changes: -ALBU2.5V7 NEB; -AZIT500T9 PO; -BUDE0.5A3 IH; +CARB-212 PO; -CELE-85 PO; +DAPA5TAB PO; -DULA1.5P SQ; -DULO-31 PO; -FURO-150 PO; +FURO40TA4 PO; +HYDR-3965 PO; -INSU100I8 SQ; -IPRA3AMP9 NEB; -LANTUS SQ; -LOSA100T57 PO; +LOSA100T58 PO; +METO200T49 PO; -PRED20TA PO; +VITE400C PO
[2023-07-09 20:48] LABS: BASOPHILS % (AUTO) 0.8 % (0-1); EOSINOPHILS # (AUTO) 0.1 X10'3 (0-0.9); HEMATOCRIT 24.3 % (35.0-45.0); HEMOGLOBIN 7.5 g/dl (12.0-16.0); LYMPHOCYTES # (AUTO) 0.7 X10'3 (1.1-4.8); LYMPHOCYTES % (AUTO) 12.3 % (21-51); MEAN CORPUSCULAR HEMOGLOBIN 20.3 PG (27.0-31.0); MEAN CORPUSCULAR HGB CONC 30.8 g/dL (33.0-36.5); MEAN PLATELET VOLUME 8.1 FL (7.4-10.4); MONOCYTES # (AUTO) 0.7 X10'3 (0-0.9); MONOCYTES % (AUTO) 12.4 % (2-12); NEUTROPHILS # (AUTO) 4.4 X10'3 (1.8-7.7); NEUTROPHILS % (AUTO) 73.5 % (42-75); PLATELET COUNT 189 X10'3 (140-440); RED BLOOD COUNT 3.69 X10'6 (4.20-5.60); RED CELL DISTRIBUTION WIDTH 18.9 % (11.5-14.5); WHITE BLOOD COUNT 5.9 X10'3 (4.5-11.0)
[2023-07-09] MEDS ORDERED: furosemide 10 MG/1 ML 10ml inj IV ONE (20:55)
[2023-07-09 21:02] LABS: ALANINE AMINOTRANSFERASE 22 U/L (12-78); ALBUMIN 2.6 G/DL (3.4-5.0); ALBUMIN/GLOBULIN RATIO 0.8 (1.1-1.5); ALKALINE PHOSPHATASE 213 IU/L (46-116); ANION GAP 5 (8-16); ASPARTATE AMINO TRANSFERASE 28 U/L (10-37); BILIRUBIN,TOTAL 0.3 MG/DL (0.1-1.0); BLOOD UREA NITROGEN 14 MG/DL (7-18); BUN/CREATININE RATIO 11.9 (10.0-20.0); CALCIUM 8.5 MG/DL (8.5-10.1); CHLORIDE 104 MMOL/L (99-107); CREATININE 1.18 MG/DL (0.40-0.90); GLUCOSE 161 MG/DL (70-104); POTASSIUM 4.3 MMOL/L (3.5-5.1); SODIUM 137 MMOL/L (135-145); TOTAL CARBON DIOXIDE 28.2 MMOL/L (24-32); TOTAL PROTEIN 5.7 G/DL (6.4-8.2); eCRCL 32 ML/MIN; eGFR 45 ML/MIN
[2023-07-09 21:09] LABS: PRO BRAIN NATRIURETIC PEPTIDE 1323 PG/ML (0-125)
--- NOTE | 2023-07-09 21:33 | NUR ---
2130 CHAPERONED PA RAY FOR OCCULT SPEC, PT SIVA WELL
[2023-07-09 21:38] LABS: PROTHROMBIN TIME 10.4 SECONDS (9.0-12.0)
[2023-07-09 21:45] LABS: HYPOCHROMASIA 1+; PLATELET ESTIMATE NORMAL; POLYCHROMASIA FEW
[2023-07-09 21:46] LABS: ANISOCYTOSIS 2+; ELLIPTOCYTES 1+; MICROCYTOSIS 2+
[2023-07-09 21:58] LABS: OCCULT BLOOD STOOL POSITIVE (Neg)
[2023-07-09] MEDS ORDERED: pantoprazole 40MG/NS 100ML BAG 100 ML IV SCH ×2 (22:16→22:20)
[2023-07-09] MEDS ORDERED: magnesium 4gm in 100ml NS 100 ML IV PRN (22:20)
[2023-07-09] MEDS ORDERED: ondansetron/PF 4mg/2ml inj IV PRN (22:20)
[2023-07-09] MEDS ORDERED: magnesium Cl slow-release 64mg tablet PO PRN (22:20)
[2023-07-09] MEDS ORDERED: acetaminophen 325mg tablet PO PRN ×2 (22:20)
[2023-07-09] MEDS ORDERED: potassium Cl 40MEQ/1/2NS 520ml 520 ML IV PRN (22:20)
[2023-07-09] MEDS ORDERED: normal saline 1000ml 1,000 ML IV SCH (22:20)
[2023-07-09] MEDS ORDERED: potassium Cl 20 mEq SR tablet PO PRN ×2 (22:20)
[2023-07-09] MEDS ORDERED: magnesium 2GM in 50ml NS 50 ML IV PRN (22:20)
[2023-07-09] MEDS ORDERED: albuterol 2.5 MG/3 ML nebule NEB PRN (22:55)
[2023-07-09] MEDS ORDERED: metoprolol succinate 25mg (24-HOUR) SR. Tablet PO SCH (23:00)
[2023-07-09 23:21] LABS: % IRON SATURATION 5 % (11-46); IRON 16 UG/DL (49-151); TOTAL IRON BINDING CAPACITY 291 UG/DL (259-388)
[2023-07-09 23:22] LABS: D-DIMER 0.56 MG/L FEU (0-0.50)
[2023-07-09 23:26] VITALS: BP 213/97; PULSE 84; RESP 20; TEMP 99.3
[2023-07-09 23:38] LABS: ABG HCO3 23.3 mmol/L (22.0-26.0); ABG OXYGEN SATURATION 92.1 % (94-97); ABG PCO2 (T) 32.2 mmHg (32.0-45.0); ABG PH (T) 7.478 (7.350-7.450); ABG PO2 (T) 62.8 mmHg (75.0-100.0); ALLEN'S TEST POSITIVE; FCOHb 0.7 % (0.0-3.9); FHHb 7.8 % (0.0-5.0); FMetHb 0.4 % (0.0-1.5); FO2Hb 91.1 % (94-97); MODE RA
[2023-07-09 23:40] VITALS: BP 142/122; PULSE 90; RESP 22; TEMP 99.4
[2023-07-09 23:43] VITALS: PULSE 85; RESP 22; O2SAT 95
[2023-07-09] MEDS: losartan 50mg tablet PO SCH (23:50)
--- NOTE | 2023-07-09 23:53 | NUR ---
900 Ml OUTPUT PER PURE WICK, POST LASIX
[2023-07-09 23:55] VITALS: BP 225/91; PULSE 86; RESP 25; TEMP 99.3
[2023-07-10] VITALS (20 sets, daily range): BP systolic 149–216; BP diastolic 55–98; PULSE 70–84; RESP 15–25; TEMP 97.9–100; O2SAT 94–100
--- NOTE | 2023-07-10 01:02 | NUR ---
Transfusion complete. No reaction noted. VSS
[2023-07-10] MEDS ORDERED: amLODIPine 5mg tablet PO ONE (02:15)
[2023-07-10] MEDS: labetalol 100mg tablet PO SCH ×3 (02:58→20:04)
[2023-07-10] MEDS: furosemide 20 MG/2 ML vial IV SCH ×2 (07:51→20:04)
[2023-07-10] MEDS: pantoprazole 40MG/NS 100ML BAG 100 ML IV SCH ×2 (07:51→20:04)
[2023-07-10] MEDS: losartan 50mg tablet PO SCH (07:52)
[2023-07-10 09:27] LABS: BASOPHILS # (AUTO) 0.1 X10'3 (0-0.2); BASOPHILS % (AUTO) 0.8 % (0-1); EOSINOPHILS # (AUTO) 0.1 X10'3 (0-0.9); EOSINOPHILS % (AUTO) 1.2 % (0-6); HEMATOCRIT 31.3 % (35.0-45.0); HEMOGLOBIN 9.8 g/dl (12.0-16.0); LYMPHOCYTES # (AUTO) 1.4 X10'3 (1.1-4.8); LYMPHOCYTES % (AUTO) 20.4 % (21-51); MEAN CORPUSCULAR HEMOGLOBIN 22.4 PG (27.0-31.0); MEAN CORPUSCULAR HGB CONC 31.4 g/dL (33.0-36.5); MEAN CORPUSCULAR VOLUME 71.3 FL (78-98); MEAN PLATELET VOLUME 8.2 FL (7.4-10.4); MONOCYTES # (AUTO) 1.3 X10'3 (0-0.9); MONOCYTES % (AUTO) 18.2 % (2-12); NEUTROPHILS # (AUTO) 4.1 X10'3 (1.8-7.7); NEUTROPHILS % (AUTO) 59.4 % (42-75); PLATELET COUNT 181 X10'3 (140-440); RED BLOOD COUNT 4.39 X10'6 (4.20-5.60); RED CELL DISTRIBUTION WIDTH 22.6 % (11.5-14.5); WHITE BLOOD COUNT 6.9 X10'3 (4.5-11.0)
[2023-07-10] MEDS ORDERED: furosemide 10 MG/1 ML 10ml inj IV ONE (09:30)
[2023-07-10] MEDS: morphine 2 MG/ML inj. syringe IV PRN ×3 (10:00→22:31)
[2023-07-10 10:10] LABS: ALANINE AMINOTRANSFERASE 12 U/L (12-78); ALBUMIN 2.6 G/DL (3.4-5.0); ALBUMIN/GLOBULIN RATIO 0.8 (1.1-1.5); ALKALINE PHOSPHATASE 201 IU/L (46-116); ANION GAP 10 (8-16); ASPARTATE AMINO TRANSFERASE 35 U/L (10-37); BILIRUBIN,TOTAL 0.9 MG/DL (0.1-1.0); BLOOD UREA NITROGEN 15 MG/DL (7-18); BUN/CREATININE RATIO 13.4 (10.0-20.0); CALCIUM 8.3 MG/DL (8.5-10.1); CHLORIDE 104 MMOL/L (99-107); CREATININE 1.12 MG/DL (0.40-0.90); GLUCOSE 183 MG/DL (70-104); POTASSIUM 3.9 MMOL/L (3.5-5.1); SODIUM 137 MMOL/L (135-145); TOTAL CARBON DIOXIDE 23.2 MMOL/L (24-32); TOTAL PROTEIN 5.8 G/DL (6.4-8.2); eCRCL 34 ML/MIN; eGFR 48 ML/MIN
--- NOTE | 2023-07-10 10:36 | NUR ---
Dr at bedside notified of BP. Will continue to monitor
[2023-07-10 10:52] LABS: PLATELET ESTIMATE NORMAL; TOTAL CELLS COUNTED 100
[2023-07-10 10:53] LABS: ANISOCYTOSIS 3+; ELLIPTOCYTES 2+; HYPOCHROMASIA 1+; MICROCYTOSIS 1+; SCHISTOCYTES 1+
[2023-07-10 10:54] LABS: SMUDGE CELLS FEW; STOMATOCYTES 1+
--- NOTE | 2023-07-10 12:37 | NUR ---
Pt to GI lab
[2023-07-10] MEDS ORDERED: fentaNYL/PF 50MCG/1 ML 2ML syringe ONE (14:30)
[2023-07-10] MEDS ORDERED: MIDAZolam 1 MG/ML 5ML VIAL ONE (14:30)
[2023-07-10] MEDS ORDERED: LIDOcaine Viscous 15ml cup ONE (14:31)
--- NOTE | 2023-07-10 15:44 | NUR ---
Report called to Joselyn in ortho
--- NOTE | 2023-07-10 17:55 | NUR ---
patients B/P 201/./. Dr Morales called for orders.
[2023-07-10] MEDS ORDERED: hydrALAZINE 20mg/ml inj. IV PRN (18:00)
[2023-07-10] MEDS ORDERED: DEXTROSE 15 GM of carb/4 tabs (each vial/BOTTLE has 4 tablets) PO PRN ×2 (18:05)
[2023-07-10] MEDS ORDERED: dextrose 50%-water 50ml dispensing syringe IV PRN ×2 (18:05)
[2023-07-10] MEDS ORDERED: glucagon, human recombinant 1mg kit SUBCUT PRN (18:05)
[2023-07-10] MEDS ORDERED: MESSAGE TO PHARMACY PO ONE (18:05)
--- NOTE | 2023-07-10 19:00 | NUR ---
12 HR CHART CHECK TURNED UP ORDER FOR COVID BINEX TEST AND INFLUENZA TO BE DONE. D/T NATURE OF THESE TESTS, PATIENT PUT INTO ISOLATION AND EMPLOYEES GOWN AND MASKING. SAMPLES OBTAINED AND SENT TO LAB. PT NOTED TO HAVE A VERY COURSE COUGH AND SOB WITH VERY LITTLE EXERTION. ASSMT COMPLETED AND SKIN CHECK DONE.
[2023-07-10] MEDS ORDERED: sodium ferric gluc complex inj 125 MG in normal saline 100ml IV soln 100 ML IV ONE (19:05)
--- NOTE | 2023-07-10 19:18 | NUR ---
Patient in room ORTHO 4023. I have received report from TESSY BEACH and had the opportunity to ask questions and assume patient care.
--- NOTE | 2023-07-10 19:21 | NUR ---
Patient report given to Elif BEACH
--- NOTE | 2023-07-10 20:30 | NUR ---
RC'D CALL FROM LAB, PATIENT IS POSITIVE FOR COVID. ISOLATION CART SET UP OUTSIDE ROOM AND PATIENT NOTIFIED OF POSITIVE RESULTS.
[2023-07-10] MEDS: insulin glargine (Lantus) pen - multi-dose SQ SCH (21:00)
[2023-07-10] MEDS ORDERED: amLODIPine 5mg tablet PO STA (22:28)
[2023-07-10] MEDS ORDERED: hydrALAZINE 20mg/ml inj. IV ONE (22:30)
[2023-07-10] MEDS ORDERED: metoprolol tartrate 1mg/ml inj IV ONE (22:30)
--- NOTE | 2023-07-10 23:16 | NUR ---
pt was to receive iv push metoprolol and hydralazine, just prior to initiating push pt blood pressure was 192/52 15 minutes post injection pt blood pressure now 162/62
[2023-07-11] VITALS (9 sets, daily range): BP systolic 103–182; BP diastolic 51–77; PULSE 81–97; RESP 16–20; TEMP 97.5–98.3; O2SAT 92–99
[2023-07-11 06:00] LABS: BASOPHILS # (AUTO) 0.1 X10'3 (0-0.2); BASOPHILS % (AUTO) 1.1 % (0-1); EOSINOPHILS # (AUTO) 0.1 X10'3 (0-0.9); EOSINOPHILS % (AUTO) 2.6 % (0-6); HEMATOCRIT 29.2 % (35.0-45.0); HEMOGLOBIN 9.2 g/dl (12.0-16.0); LYMPHOCYTES # (AUTO) 1.1 X10'3 (1.1-4.8); LYMPHOCYTES % (AUTO) 20.3 % (21-51); MEAN CORPUSCULAR HEMOGLOBIN 22.3 PG (27.0-31.0); MEAN CORPUSCULAR HGB CONC 31.6 g/dL (33.0-36.5); MEAN CORPUSCULAR VOLUME 70.5 FL (78-98); MEAN PLATELET VOLUME 8.4 FL (7.4-10.4); MONOCYTES # (AUTO) 1.2 X10'3 (0-0.9); MONOCYTES % (AUTO) 21.6 % (2-12); NEUTROPHILS % (AUTO) 54.4 % (42-75); PLATELET COUNT 171 X10'3 (140-440); RED BLOOD COUNT 4.14 X10'6 (4.20-5.60); RED CELL DISTRIBUTION WIDTH 22.9 % (11.5-14.5); WHITE BLOOD COUNT 5.6 X10'3 (4.5-11.0)
[2023-07-11 06:16] LABS: ALANINE AMINOTRANSFERASE 16 U/L (12-78); ALBUMIN 2.4 G/DL (3.4-5.0); ALBUMIN/GLOBULIN RATIO 0.8 (1.1-1.5); ALKALINE PHOSPHATASE 172 IU/L (46-116); ANION GAP 8 (8-16); ASPARTATE AMINO TRANSFERASE 42 U/L (10-37); BILIRUBIN,TOTAL 0.4 MG/DL (0.1-1.0); BLOOD UREA NITROGEN 13 MG/DL (7-18); BUN/CREATININE RATIO 11.5 (10.0-20.0); CHLORIDE 103 MMOL/L (99-107); CREATININE 1.13 MG/DL (0.40-0.90); GLUCOSE 165 MG/DL (70-104); POTASSIUM 3.6 MMOL/L (3.5-5.1); SODIUM 139 MMOL/L (135-145); TOTAL CARBON DIOXIDE 27.6 MMOL/L (24-32); TOTAL PROTEIN 5.3 G/DL (6.4-8.2); eCRCL 33 ML/MIN; eGFR 47 ML/MIN
--- NOTE | 2023-07-11 07:00 | NUR ---
Report received from Elif BEACH
--- NOTE | 2023-07-11 07:06 | NUR ---
report received from Elif and kirstin barton. Susan RN
[2023-07-11 07:57] LABS: ANISOCYTOSIS 3+; MICROCYTOSIS 1+; PLATELET ESTIMATE NORMAL
[2023-07-11 07:58] LABS: POIKILOCYTOSIS FEW; POLYCHROMASIA FEW
[2023-07-11] MEDS: nystatin 15 GM powder TP SCH ×3 (08:00→19:45)
[2023-07-11] MEDS: labetalol 100mg tablet PO SCH ×2 (08:52→19:45)
[2023-07-11] MEDS: amLODIPine 5mg tablet PO SCH (08:53)
[2023-07-11] MEDS: losartan 50mg tablet PO SCH (08:53)
[2023-07-11] MEDS: pantoprazole 40MG/NS 100ML BAG 100 ML IV SCH ×2 (08:54→19:44)
[2023-07-11] MEDS: furosemide 10 MG/1 ML 10ml inj IV SCH (08:54)
[2023-07-11] MEDS ORDERED: dexamethasone inj 6 MG in dextrose 5%-water 100 ML IV SCH (09:00)
--- NOTE | 2023-07-11 09:12 | NUR ---
when arrived to do accu check, pt had already finished her clear liquid tray prior to testing
[2023-07-11] MEDS ORDERED: REMDESIVIR 200 MG in NS 100ml IVPB Loading dose IV ONE (10:00)
[2023-07-11] MEDS ORDERED: dexamethasone inj 6 MG in normal saline 50ml IV soln 50 ML IV ONE (10:00)
[2023-07-11 10:48] LABS: D-DIMER 0.85 MG/L FEU (0-0.50)
[2023-07-11] MEDS: enoxaparin 40mg/0.4ml syringe SUBCUT SCH ×2 (10:50→19:44)
[2023-07-11] MEDS: morphine 2 MG/ML inj. syringe IV PRN ×2 (12:23→22:03)
[2023-07-11] MEDS: insulin Lispro (HumaLOG) vial - multi-dose SQ SCH ×2 (14:39→19:49)
[2023-07-11] MEDS ORDERED: ASPI81TA52 PO (16:11)
[2023-07-11] MEDS ORDERED: FLUT1AER INH (16:32)
[2023-07-11] MEDS ORDERED: ALBU18HF2 INH (16:32)
[2023-07-11] MEDS ORDERED: CARB200T40 PO (16:35)
[2023-07-11] MEDS ORDERED: INSU100V9 SQ (16:43)
--- NOTE | 2023-07-11 16:47 | NUR ---
Tona Robert pt moved to room 4018 from [facility] rec is completed, sorry for delay. Susan
--- NOTE | 2023-07-11 18:17 | NUR ---
Blood sugar 289-pt has been eating cranberry bread brought in by family Addendum: 07/11/23 at 1818 by Susan Garcia RN Amended: Links added.
--- NOTE | 2023-07-11 18:54 | NUR ---
report given to Elif Davis RN Addendum: 07/11/23 at 1854 by Susan Garcia RN Amended: Links added.
--- NOTE | 2023-07-11 19:05 | NUR ---
Patient in room ORTHO 4018. I have received report from ANDRÉS RN and had the opportunity to ask questions and assume patient care.
[2023-07-11] MEDS: dexamethasone inj 6 MG in normal saline 50ml IV soln 50 ML IV SCH (19:42)
[2023-07-11] MEDS: insulin glargine (Lantus) pen - multi-dose SQ SCH (21:57)
[2023-07-12] VITALS (10 sets, daily range): BP systolic 129–172; BP diastolic 54–91; PULSE 43–88; RESP 14–22; TEMP 97.6–98.7; O2SAT 94–98
[2023-07-12 05:37] LABS: BASOPHILS % (AUTO) 0.2 % (0-1); EOSINOPHILS % (AUTO) 0 % (0-6); HEMATOCRIT 28.7 % (35.0-45.0); LYMPHOCYTES # (AUTO) 0.7 X10'3 (1.1-4.8); LYMPHOCYTES % (AUTO) 15.8 % (21-51); MEAN CORPUSCULAR HEMOGLOBIN 22.3 PG (27.0-31.0); MEAN CORPUSCULAR HGB CONC 31.5 g/dL (33.0-36.5); MEAN CORPUSCULAR VOLUME 70.9 FL (78-98); MEAN PLATELET VOLUME 8.3 FL (7.4-10.4); MONOCYTES # (AUTO) 0.4 X10'3 (0-0.9); MONOCYTES % (AUTO) 8.3 % (2-12); NEUTROPHILS # (AUTO) 3.5 X10'3 (1.8-7.7); NEUTROPHILS % (AUTO) 75.7 % (42-75); PLATELET COUNT 178 X10'3 (140-440); RED BLOOD COUNT 4.04 X10'6 (4.20-5.60); RED CELL DISTRIBUTION WIDTH 22.2 % (11.5-14.5); WHITE BLOOD COUNT 4.6 X10'3 (4.5-11.0)
[2023-07-12 06:13] LABS: ALANINE AMINOTRANSFERASE 16 U/L (12-78); ALBUMIN 2.3 G/DL (3.4-5.0); ALBUMIN/GLOBULIN RATIO 0.8 (1.1-1.5); ALKALINE PHOSPHATASE 163 IU/L (46-116); ANION GAP 10 (8-16); ASPARTATE AMINO TRANSFERASE 41 U/L (10-37); BILIRUBIN,TOTAL 0.3 MG/DL (0.1-1.0); BLOOD UREA NITROGEN 16 MG/DL (7-18); BUN/CREATININE RATIO 14.3 (10.0-20.0); CALCIUM 8.5 MG/DL (8.5-10.1); CHLORIDE 104 MMOL/L (99-107); CREATININE 1.12 MG/DL (0.40-0.90); GLUCOSE 181 MG/DL (70-104); POTASSIUM 3.7 MMOL/L (3.5-5.1); SODIUM 139 MMOL/L (135-145); TOTAL CARBON DIOXIDE 25.5 MMOL/L (24-32); TOTAL PROTEIN 5.2 G/DL (6.4-8.2); eCRCL 34 ML/MIN; eGFR 48 ML/MIN
--- NOTE | 2023-07-12 06:56 | NUR ---
Problems reprioritized. Patient report given, questions answered & plan of care reviewed with ANDRÉS RN.
--- NOTE | 2023-07-12 07:07 | NUR ---
Patient in room ORTHO 4018. I have received report from Elif and had the opportunity to ask questions. RN Gloria is this patient's primary nurse and will be provided the care and medications administration.
[2023-07-12] MEDS: labetalol 100mg tablet PO SCH (07:14)
[2023-07-12] MEDS: morphine 2 MG/ML inj. syringe IV PRN ×2 (07:14→16:58)
[2023-07-12] MEDS: amLODIPine 5mg tablet PO SCH (07:15)
[2023-07-12] MEDS: losartan 50mg tablet PO SCH (07:15)
[2023-07-12] MEDS: nystatin 15 GM powder TP SCH ×3 (07:16→21:00)
[2023-07-12] MEDS: furosemide 10 MG/1 ML 10ml inj IV SCH (07:24)
[2023-07-12] MEDS: REMDESIVIR INJ 100 MG in normal saline 100ml IV soln 100 ML IV SCH (09:13)
[2023-07-12] MEDS: dexamethasone inj 6 MG in normal saline 50ml IV soln 50 ML IV SCH ×2 (09:14→21:45)
[2023-07-12] MEDS: enoxaparin 40mg/0.4ml syringe SUBCUT SCH ×2 (09:15→21:43)
[2023-07-12] MEDS: pantoprazole 40mg Tablet.DR PO SCH ×2 (09:15→21:44)
[2023-07-12] MEDS: insulin Lispro (HumaLOG) vial - multi-dose SQ SCH ×2 (10:05→14:16)
[2023-07-12 10:15] LABS: D-DIMER 0.76 MG/L FEU (0-0.50)
[2023-07-12] MEDS ORDERED: guaiFENesin 200 MG/10 ML oral syrup UD cup PO PRN (13:35)
[2023-07-12] MEDS: gabapentin 300mg capsule PO SCH (13:40)
--- NOTE | 2023-07-12 19:30 | NUR ---
Patient in room ORTHO 4018. I have received report from ANDRÉS RN and had the opportunity to ask questions and assume patient care.
[2023-07-12] MEDS: budesonide 0.5mg/2ml UD nebule IH SCH (20:45)
[2023-07-12] MEDS ORDERED: metoprolol succinate 25mg (24-HOUR) SR. Tablet PO SCH (21:00)
[2023-07-12] MEDS: carBAMazepine 100mg chewable tablet PO SCH (21:45)
[2023-07-12] MEDS: insulin glargine (Lantus) pen - multi-dose SQ SCH (22:23)
[2023-07-13 05:55] LABS: BASOPHILS % (AUTO) 0.4 % (0-1); EOSINOPHILS % (AUTO) 0 % (0-6); HEMATOCRIT 29.9 % (35.0-45.0); HEMOGLOBIN 9.5 g/dl (12.0-16.0); LYMPHOCYTES % (AUTO) 18.3 % (21-51); MEAN CORPUSCULAR HEMOGLOBIN 22.4 PG (27.0-31.0); MEAN CORPUSCULAR HGB CONC 31.6 g/dL (33.0-36.5); MEAN PLATELET VOLUME 8.4 FL (7.4-10.4); MONOCYTES # (AUTO) 0.5 X10'3 (0-0.9); MONOCYTES % (AUTO) 8.2 % (2-12); NEUTROPHILS % (AUTO) 73.1 % (42-75); PLATELET COUNT 185 X10'3 (140-440); RED BLOOD COUNT 4.22 X10'6 (4.20-5.60); RED CELL DISTRIBUTION WIDTH 22.7 % (11.5-14.5); WHITE BLOOD COUNT 5.5 X10'3 (4.5-11.0)
[2023-07-13 06:16] LABS: D-DIMER 0.45 MG/L FEU (0-0.50)
[2023-07-13 06:34] LABS: ALANINE AMINOTRANSFERASE 23 U/L (12-78); ALBUMIN 2.5 G/DL (3.4-5.0); ALBUMIN/GLOBULIN RATIO 0.8 (1.1-1.5); ALKALINE PHOSPHATASE 163 IU/L (46-116); ANION GAP 8 (8-16); ASPARTATE AMINO TRANSFERASE 42 U/L (10-37); BILIRUBIN,TOTAL 0.4 MG/DL (0.1-1.0); BLOOD UREA NITROGEN 19 MG/DL (7-18); BUN/CREATININE RATIO 17.8 (10.0-20.0); C-REACTIVE PROTEIN 1.82 MG/DL (0.0-0.5); CALCIUM 8.5 MG/DL (8.5-10.1); CHLORIDE 103 MMOL/L (99-107); CREATININE 1.07 MG/DL (0.40-0.90); GLUCOSE 177 MG/DL (70-104); POTASSIUM 3.9 MMOL/L (3.5-5.1); SODIUM 138 MMOL/L (135-145); TOTAL CARBON DIOXIDE 27.3 MMOL/L (24-32); TOTAL PROTEIN 5.6 G/DL (6.4-8.2); eCRCL 35 ML/MIN; eGFR 50 ML/MIN
--- NOTE | 2023-07-13 06:51 | NUR ---
Patient in room ORTHO 4018. I have received report from Elif and had the opportunity to ask questions and assume patient care.
[2023-07-13 07:20] VITALS: BP 189/79; PULSE 69; RESP 20; TEMP 97.8; O2SAT 99
[2023-07-13] MEDS ORDERED: albuterol 60 PUFF/8GM Inhaler (90mcg/1 puff) IH PRN (07:30)
[2023-07-13] MEDS ORDERED: metoprolol succinate 25mg (24-HOUR) SR. Tablet PO SCH (08:00)
[2023-07-13] MEDS ORDERED: cholecalciferol (vitamin D3) 1,000 unit (25mcg) tablet PO SCH (08:00)
[2023-07-13] MEDS ORDERED: albuterol 2.5 MG/3 ML nebule NEB SCH (08:00)
[2023-07-13] MEDS ORDERED: DAPAGLIFLOZIN 10MG TABLET PO SCH (08:00)
[2023-07-13] MEDS: budesonide 0.5mg/2ml UD nebule IH SCH (08:00)
[2023-07-13] MEDS: furosemide 10 MG/1 ML 10ml inj IV SCH (08:11)
[2023-07-13] MEDS: dexamethasone inj 6 MG in normal saline 50ml IV soln 50 ML IV SCH (08:12)
[2023-07-13] MEDS: losartan 50mg tablet PO SCH (08:13)
[2023-07-13] MEDS: gabapentin 300mg capsule PO SCH (08:13)
[2023-07-13] MEDS: REMDESIVIR INJ 100 MG in normal saline 100ml IV soln 100 ML IV SCH (08:13)
[2023-07-13] MEDS: amLODIPine 5mg tablet PO SCH (08:14)
[2023-07-13] MEDS: pantoprazole 40mg Tablet.DR PO SCH (08:14)
[2023-07-13] MEDS: carBAMazepine 100mg chewable tablet PO SCH (08:15)
[2023-07-13] MEDS: enoxaparin 40mg/0.4ml syringe SUBCUT SCH (08:16)
[2023-07-13 08:19] VITALS: RESP 20; O2SAT 99
[2023-07-13] MEDS: nystatin 15 GM powder TP SCH (08:19)
[2023-07-13 08:29] LABS: ANISOCYTOSIS 3+; ELLIPTOCYTES 1+; MICROCYTOSIS 1+; PLATELET ESTIMATE NORMAL; TEAR DROP CELLS FEW
[2023-07-13 10:00] VITALS: BP 187/83; PULSE 68; RESP 20; TEMP 97.7; O2SAT 96
[2023-07-13] MEDS: insulin Lispro (HumaLOG) vial - multi-dose SQ SCH (10:23)
[2023-07-13 11:16] VITALS: PULSE 77; RESP 16; O2SAT 98
[2023-07-13] MEDS ORDERED: PANT-47 PO ×2 (12:06→12:07)
[2023-07-13] MEDS ORDERED: DEXA6TAB PO ×2 (12:08)
[2023-07-13] MEDS ORDERED: PANT40SU2 PO (12:16)
[2023-07-13] MEDS ORDERED: ASCO500C17 PO (12:20)
[2023-07-13] MEDS ORDERED: FERR324T4 PO (12:20)
--- NOTE | 2023-07-13 14:56 | NUR ---
Reviewed discharge instructions with patient and her daughter. Patient verbalized understanding. Patient was able to dress herself and gather her belongings. patient's daughter arrived to pick her up. Per patient, she is missing a brassiere, [employer] ramirez slip on shoe and a black nightgown. Thorough search was done, call to materials/EVS search of previous room patient was in, unable to locate items. Advisory note left for director in the posted box. Patient was wheeled downstairs to be driven home by her spouse and accompanied by her daughter.
[2023-07-15] MEDS ORDERED: DEXA6TAB PO (14:05)
== END 2023-07-13 14:33 | disposition home or self-care (01) | DRG 377 ==
LOC: ER 20:17 → ED HOLD 22:27 → ORTHO 4S 07-10 16:10
PROVIDERS: ADMIT Internal Medicine; ATTEND Internal Medicine
PROC: 30233N1 Transfusion of Nonautologous Red Blood Cells into Peripheral Vein, Percutaneous Approach (ICD-10-PCS; 2023-07-09)
PROC: 0DB68ZX Excision of Stomach, Via Natural or Artificial Opening Endoscopic, Diagnostic (ICD-10-PCS; principal; 2023-07-10)
PROC: 0DB78ZX Excision of Stomach, Pylorus, Via Natural or Artificial Opening Endoscopic, Diagnostic (ICD-10-PCS; 2023-07-10)
PROC: XW033E5 Introduction of Remdesivir Anti-infective into Peripheral Vein, Percutaneous Approach, New Technology Group 5 (ICD-10-PCS; 2023-07-11)
DX: K29.71 Gastritis, unspecified, with bleeding (principal); I50.43 Acute on chronic combined systolic (congestive) and diastolic (congestive) heart failure; U07.1 COVID-19; J12.82 Pneumonia due to coronavirus disease 2019; J96.21 Acute and chronic respiratory failure with hypoxia; Z68.43 Body mass index [BMI] 50.0-59.9, adult; E44.0 Moderate protein-calorie malnutrition; D62 Acute posthemorrhagic anemia; K21.00 Gastro-esophageal reflux disease with esophagitis, without bleeding; I27.81 Cor pulmonale (chronic); E66.9 Obesity, unspecified; I16.0 Hypertensive urgency; M17.0 Bilateral primary osteoarthritis of knee; E11.42 Type 2 diabetes mellitus with diabetic polyneuropathy; Z90.49 Acquired absence of other specified parts of digestive tract; Z90.710 Acquired absence of both cervix and uterus; Z80.1 Family history of malignant neoplasm of trachea, bronchus and lung; Z82.49 Family history of ischemic heart disease and other diseases of the circulatory system; Z88.0 Allergy status to penicillin; Z88.5 Allergy status to narcotic agent; Z88.8 Allergy status to other drugs, medicaments and biological substances; Z91.048 Other nonmedicinal substance allergy status; I25.2 Old myocardial infarction; Z79.899 Other long term (current) drug therapy; Z79.82 Long term (current) use of aspirin
CPT/HCPCS: 36415; 36430; 36600; 43235; 43239; 71045; 80053; 82272; 82803; 82948; 83540; 83550; 83605; 83880; 84484; 85007; 85008; 85018; 85025; 85379; 85610; 86140; 86885; 86900; 86901; 86920; 87081; 87811; 88305; 88342; 93306; 94640; 94760; 99152; 99285; A4620; C9113; G0378; J0360; J1100; J1650; J1815; J1940; J2250; J2270; J2916; J3010; J3490; J7030; J7040; J7050; P9016

== ENCOUNTER 2024-03-19 18:22 | Emergency (ER) | payer OTHER ==
[~2024-03-19 18:22] MED LIST changes: +ALBU18HF2 INH; +ASCO500C17 PO; -ASPI-1071 PO; +ASPI81TA52 PO; -CARB-212 PO; +CARB200T40 PO; +DEXA6TAB PO; -DIPH-1055 PO; +DIPH-1212 PO; +FERR324T4 PO; +FLUT1AER INH; +INSU100V9 SQ; +METO200T37 PO; -METO200T49 PO; +PANT-47 PO; +PANT40SU2 PO
[2024-03-19] MEDS ORDERED: acetaminophen 325mg tablet PO ONE (20:50)
[2024-03-19] MEDS: acetaminophen 325mg tablet PO ONE (21:03)
[2024-03-19 21:11] VITALS: BP 105/89; PULSE 75; RESP 16; TEMP 97.9; O2SAT 97
== END 2024-03-19 21:13 | disposition home or self-care (01) ==
LOC: ER 18:23
DX: S96.911A Strain of unspecified muscle and tendon at ankle and foot level, right foot, initial encounter (principal); E11.42 Type 2 diabetes mellitus with diabetic polyneuropathy; I50.9 Heart failure, unspecified; M19.90 Unspecified osteoarthritis, unspecified site; Z91.09 Other allergy status, other than to drugs and biological substances; Z88.8 Allergy status to other drugs, medicaments and biological substances; Z88.0 Allergy status to penicillin; Z88.5 Allergy status to narcotic agent; Z79.899 Other long term (current) drug therapy; Z79.82 Long term (current) use of aspirin; Z98.890 Other specified postprocedural states; Z90.49 Acquired absence of other specified parts of digestive tract; Z90.710 Acquired absence of both cervix and uterus; W19.XXXA Unspecified fall, initial encounter; Y93.89 Activity, other specified; Y92.89 Other specified places as the place of occurrence of the external cause; Y99.8 Other external cause status
CPT/HCPCS: 73590; 73630; 99284

== ENCOUNTER 2024-08-14 08:40 | Inpatient (IN) | payer OTHER ==
[~2024-08-14] VITALS: Ht 157.5 cm; Wt 118.3 kg
[2024-08-14] MEDS ORDERED: iohexol 350MG/ML 100ml bottle IV ONE (08:50)
[2024-08-14 09:24] LABS: APTT 26 SECONDS (22-32); INR 1.1 INR; PROTHROMBIN TIME 11.4 SECONDS (9.0-12.0)
[2024-08-14 09:25] LABS: BASOPHILS # (AUTO) 0.1 X10'3 (0-0.2); BASOPHILS % (AUTO) 0.6 % (0-1); EOSINOPHILS % (AUTO) 0 % (0-6); HEMATOCRIT 34.9 % (35.0-45.0); HEMOGLOBIN 11.6 g/dl (12.0-16.0); LYMPHOCYTES # (AUTO) 1.4 X10'3 (1.1-4.8); LYMPHOCYTES % (AUTO) 8.7 % (21-51); MEAN CORPUSCULAR HGB CONC 33.2 g/dL (33.0-36.5); MEAN CORPUSCULAR VOLUME 90.1 FL (78-98); MONOCYTES # (AUTO) 0.8 X10'3 (0-0.9); MONOCYTES % (AUTO) 4.7 % (2-12); NEUTROPHILS # (AUTO) 13.7 X10'3 (1.8-7.7); PLATELET COUNT 179 X10'3 (140-440); RED BLOOD COUNT 3.87 X10'6 (4.20-5.60); RED CELL DISTRIBUTION WIDTH 17.6 % (11.5-14.5); WHITE BLOOD COUNT 15.9 X10'3 (4.5-11.0)
[2024-08-14 09:27] LABS: ALANINE AMINOTRANSFERASE 16 U/L (12-78); ALBUMIN 1.4 G/DL (3.4-5.0); ALBUMIN/GLOBULIN RATIO 0.4 (1.1-1.5); ALKALINE PHOSPHATASE 245 IU/L (46-116); ANION GAP 8 (8-16); ASPARTATE AMINO TRANSFERASE 34 U/L (10-37); BILIRUBIN,TOTAL 1.1 MG/DL (0.1-1.0); BLOOD UREA NITROGEN 13 MG/DL (7-18); BUN/CREATININE RATIO 5.7 (10.0-20.0); CALCIUM 7.7 MG/DL (8.5-10.1); CHLORIDE 108 MMOL/L (99-107); CREATININE 2.27 MG/DL (0.40-0.90); GLUCOSE 136 MG/DL (70-104); POTASSIUM 3.5 MMOL/L (3.5-5.1); SODIUM 142 MMOL/L (135-145); TOTAL CARBON DIOXIDE 25.8 MMOL/L (24-32); TOTAL PROTEIN 4.9 G/DL (6.4-8.2); eCRCL 17 ML/MIN; eGFR 21 ML/MIN
[2024-08-14 11:12] LABS: BILIRUBIN,URINE SMALL (Neg); CLARITY,URINE TURBID (Clear); COLOR,URINE YELLOW (Yellow); GLUCOSE, URINE NEGATIVE (Neg); KETONES,URINE TRACE mg/dl (Neg); LEUKOCYTE ESTERASE ,URINE MODERATE (Neg); NITRITES, URINE NEGATIVE (Neg); OCCULT BLOOD,URINE MODERATE (Neg); PROTEIN,URINE >=300 mg/dl (Neg)
[2024-08-14 11:15] LABS: UA COLLECTION TYPE STRAIGHT CATH
[2024-08-14 11:22] LABS: WBC,URINE TNTC /HPF (0-4)
[2024-08-14 11:23] LABS: AMORPHOUS URATES 2+; BACTERIA,URINE 4+ /HPF (Neg); FINE GRANULAR CAST 0-3 /LPF (NEGATIVE); MUCUS STRANDS FEW /LPF (Neg); SQUAMOUS EPITHELIAL CELL,UR FEW /LPF (FEW); TRANSITIONAL EPI CELLS,URINE FEW /HPF
[2024-08-14 11:24] LABS: COARSE GRANULAR CAST 0-3 /LPF (NEGATIVE)
[2024-08-14] MEDS ORDERED: magnesium sulf-water 2g/50mL 50 ML IV PRN (12:10)
[2024-08-14] MEDS ORDERED: morphine 2 MG/ML inj. syringe IV PRN (12:10)
[2024-08-14] MEDS ORDERED: magnesium hydroxide 30ml (MOM) UD suspension PO PRN (12:10)
[2024-08-14] MEDS ORDERED: potassium Cl 40MEQ/1/2NS 520ml 520 ML IV PRN (12:10)
[2024-08-14] MEDS ORDERED: HYDROcodone/acetaminophen 5mg/325mg tablet PO PRN (12:10)
[2024-08-14] MEDS ORDERED: acetaminophen 325mg tablet PO PRN (12:10)
[2024-08-14] MEDS ORDERED: magnesium sulf-water 4G/100mL 100 ML IV PRN (12:10)
[2024-08-14] MEDS ORDERED: mag hydrox/Alum hydrox/simeth 30ml oral suspension PO PRN (12:10)
[2024-08-14] MEDS: normal saline 1000ml 1,000 ML IV ONE (12:31)
[2024-08-14] MEDS: CefTRIAXone/D5W-Rocephin 1gm 50 ML IV ONE (12:32)
[2024-08-14] MEDS ORDERED: dextrose 50%-water 50ml dispensing syringe IV PRN ×2 (12:45)
[2024-08-14] MEDS ORDERED: glucagon, human recombinant 1mg kit SUBCUT PRN (12:45)
[2024-08-14] MEDS ORDERED: DEXTROSE 15 GM of carb/4 tabs (each vial/BOTTLE has 4 tablets) PO PRN ×2 (12:45)
[2024-08-14] MEDS: ringers solution, lacted 1,000 ML IV ONE ×2 (13:09→13:30)
[2024-08-14 13:10] LABS: HEMOGLOBIN A1C 5.5 % (4.5-6.2)
[2024-08-14] MEDS ORDERED: normal saline 1000ml 1,000 ML IV SCH (13:10)
[2024-08-14 13:17] LABS: D-DIMER 6.28 MG/L FEU (0-0.50)
[2024-08-14] MEDS: metoprolol succinate 25mg (24-HOUR) SR. Tablet PO SCH (13:30)
[2024-08-14] MEDS: PERFLUTREN PROTEIN-A MICROSPHR (Optison) 0.22 MG/ML 3ML VIAL IV ONE (13:55)
[2024-08-14] MEDS: hydrALAZINE 20mg/ml inj. IV PRN (14:33)
[2024-08-14] MEDS: ringers solution, lacted 1,000 ML IV SCH (14:33)
[2024-08-14] MEDS: HYDROcodone/acetaminophen 10/325mg tab PO PRN (15:33)
[2024-08-14] MEDS: heparin, porcine 5000 units/ml vial SQ SCH (15:33)
[2024-08-14] MEDS: INSULIN LISPRO 100 UNIT/ML INSULN.PEN MULTI-DOSE SQ SCH (17:00)
[2024-08-14 18:00] VITALS: BP 145/64; PULSE 77; RESP 16; TEMP 98.6; O2SAT 94
[2024-08-14 20:00] VITALS: RESP 16; O2SAT 94
[2024-08-14] MEDS: K and/or MAG REPLACEMENT MC SCH (20:00)
[2024-08-14] MEDS: docusate sod 100mg capsule PO SCH (22:25)
[2024-08-14] MEDS: acetaminophen 325mg tablet PO PRN (22:25)
[2024-08-14] MEDS: insulin glargine (Lantus) pen - multi-dose SQ SCH (22:34)
[2024-08-15 05:59] VITALS: BP 151/92; PULSE 69; RESP 16; TEMP 97.9; O2SAT 98
[2024-08-15 06:31] LABS: BASOPHILS # (AUTO) 0.1 X10'3 (0-0.2); BASOPHILS % (AUTO) 0.7 % (0-1); EOSINOPHILS # (AUTO) 0.1 X10'3 (0-0.9); EOSINOPHILS % (AUTO) 1.4 % (0-6); HEMOGLOBIN 10.7 g/dl (12.0-16.0); LYMPHOCYTES # (AUTO) 2.1 X10'3 (1.1-4.8); LYMPHOCYTES % (AUTO) 21.5 % (21-51); MEAN CORPUSCULAR HEMOGLOBIN 30.7 PG (27.0-31.0); MEAN CORPUSCULAR HGB CONC 33.6 g/dL (33.0-36.5); MEAN CORPUSCULAR VOLUME 91.5 FL (78-98); MONOCYTES # (AUTO) 0.5 X10'3 (0-0.9); MONOCYTES % (AUTO) 4.8 % (2-12); NEUTROPHILS # (AUTO) 7.1 X10'3 (1.8-7.7); NEUTROPHILS % (AUTO) 71.6 % (42-75); PLATELET COUNT 157 X10'3 (140-440); RED BLOOD COUNT 3.49 X10'6 (4.20-5.60); RED CELL DISTRIBUTION WIDTH 18.2 % (11.5-14.5); WHITE BLOOD COUNT 9.8 X10'3 (4.5-11.0)
[2024-08-15 07:05] LABS: ALANINE AMINOTRANSFERASE 15 U/L (12-78); ALBUMIN 1.3 G/DL (3.4-5.0); ALBUMIN/GLOBULIN RATIO 0.4 (1.1-1.5); ALKALINE PHOSPHATASE 205 IU/L (46-116); ANION GAP 5 (8-16); ASPARTATE AMINO TRANSFERASE 52 U/L (10-37); BILIRUBIN,TOTAL 0.5 MG/DL (0.1-1.0); BLOOD UREA NITROGEN 18 MG/DL (7-18); BUN/CREATININE RATIO 7.6 (10.0-20.0); CALCIUM 7.6 MG/DL (8.5-10.1); CHLORIDE 104 MMOL/L (99-107); CHOL/HDL RATIO 2.7 (0.00-4.99); CHOLESTEROL 113 MG/DL (0-200); CREATININE 2.36 MG/DL (0.40-0.90); GLUCOSE 101 MG/DL (70-104); HDL CHOLESTEROL 42 MG/DL (35-60); LDL CHOLESTEROL 54 MG/DL (50-100); MAGNESIUM 1.5 MG/DL (1.5-2.4); POTASSIUM 3.4 MMOL/L (3.5-5.1); SODIUM 137 MMOL/L (135-145); TOTAL CARBON DIOXIDE 28.1 MMOL/L (24-32); TOTAL PROTEIN 4.8 G/DL (6.4-8.2); TRIGLYCERIDES 95 MG/DL (20-135); eCRCL 17 ML/MIN; eGFR 20 ML/MIN
[2024-08-15] MEDS: potassium Cl 20 mEq SR tablet PO PRN ×2 (08:19→23:04)
[2024-08-15] MEDS: CefTRIAXone 2gm/D5W 50ml BAG 50 ML IV SCH (08:19)
[2024-08-15 10:00] VITALS: BP 176/75; PULSE 82; RESP 16; TEMP 97.8; O2SAT 100
[2024-08-15] MEDS: Permethrin Cream 60gm TP ONE (10:50)
[2024-08-15] MEDS: ondansetron/PF 4mg/2ml inj IV PRN (10:51)
[2024-08-15] MEDS: nystatin 15 GM powder TP SCH (12:13)
[2024-08-15] MEDS: lactose-reduced food (Ensure Enlive) - 237ml bottle PO SCH (17:56)
[2024-08-15 18:00] VITALS: BP 196/62; PULSE 65; RESP 14; TEMP 97.8; O2SAT 97
[2024-08-15] MEDS: metoprolol succinate 25mg (24-HOUR) SR. Tablet PO ONE (18:40)
[2024-08-15 20:00] VITALS: RESP 14; O2SAT 97
[2024-08-15 22:00] VITALS: BP 152/70; PULSE 77; RESP 18; TEMP 97.7; O2SAT 100
[2024-08-15] MEDS: amLODIPine 5mg tablet PO ONE (22:33)
[2024-08-15] MEDS: morphine 2 MG/ML inj. syringe IV PRN (22:38)
[2024-08-16 02:12] VITALS: BP 170/58; PULSE 75; RESP 18; TEMP 97.9; O2SAT 96
[2024-08-16 06:00] VITALS: BP 170/74; PULSE 78; RESP 18; TEMP 97.8; O2SAT 99
[2024-08-16 06:02] LABS: BASOPHILS # (AUTO) 0.1 X10'3 (0-0.2); BASOPHILS % (AUTO) 0.6 % (0-1); EOSINOPHILS # (AUTO) 0.3 X10'3 (0-0.9); HEMATOCRIT 31.3 % (35.0-45.0); HEMOGLOBIN 10.6 g/dl (12.0-16.0); LYMPHOCYTES # (AUTO) 1.6 X10'3 (1.1-4.8); LYMPHOCYTES % (AUTO) 18.9 % (21-51); MEAN CORPUSCULAR HEMOGLOBIN 30.4 PG (27.0-31.0); MEAN CORPUSCULAR HGB CONC 33.9 g/dL (33.0-36.5); MEAN CORPUSCULAR VOLUME 89.8 FL (78-98); MEAN PLATELET VOLUME 7.8 FL (7.4-10.4); MONOCYTES # (AUTO) 0.7 X10'3 (0-0.9); MONOCYTES % (AUTO) 8.3 % (2-12); NEUTROPHILS # (AUTO) 5.9 X10'3 (1.8-7.7); NEUTROPHILS % (AUTO) 69.2 % (42-75); PLATELET COUNT 143 X10'3 (140-440); RED BLOOD COUNT 3.48 X10'6 (4.20-5.60); WHITE BLOOD COUNT 8.6 X10'3 (4.5-11.0)
[2024-08-16 06:18] LABS: ALANINE AMINOTRANSFERASE 17 U/L (12-78); ALBUMIN 1.3 G/DL (3.4-5.0); ALBUMIN/GLOBULIN RATIO 0.4 (1.1-1.5); ALKALINE PHOSPHATASE 234 IU/L (46-116); ANION GAP 2 (8-16); ASPARTATE AMINO TRANSFERASE 48 U/L (10-37); BILIRUBIN,TOTAL 0.4 MG/DL (0.1-1.0); BLOOD UREA NITROGEN 22 MG/DL (7-18); BUN/CREATININE RATIO 9.9 (10.0-20.0); CALCIUM 7.6 MG/DL (8.5-10.1); CHLORIDE 104 MMOL/L (99-107); CREATININE 2.23 MG/DL (0.40-0.90); GLUCOSE 119 MG/DL (70-104); MAGNESIUM 1.4 MG/DL (1.5-2.4); POTASSIUM 4.1 MMOL/L (3.5-5.1); SODIUM 137 MMOL/L (135-145); TOTAL CARBON DIOXIDE 30.7 MMOL/L (24-32); TOTAL PROTEIN 4.9 G/DL (6.4-8.2); eCRCL 18 ML/MIN; eGFR 21 ML/MIN
[2024-08-16] MEDS: metoprolol succinate 25mg (24-HOUR) SR. Tablet PO SCH (08:26)
[2024-08-16] MEDS: amLODIPine 5mg tablet PO SCH (08:26)
[2024-08-16 10:00] VITALS: BP_SYST 167; BP_SYST 170; BP_DIAS 56; BP_DIAS 74; PULSE 69; PULSE 78; RESP 15; RESP 18; TEMP 97.6; TEMP 97.8; O2SAT 98; O2SAT 99
[2024-08-16 18:00] VITALS: BP 182/63; PULSE 68; RESP 15; TEMP 97.9; O2SAT 100
[2024-08-16] MEDS ORDERED: magnesium sulf-water 4G/100mL 100 ML IV PRN (19:30)
[2024-08-16] MEDS ORDERED: potassium Cl 40MEQ/1/2NS 520ml 520 ML IV PRN (19:30)
[2024-08-16] MEDS ORDERED: potassium Cl 20 mEq SR tablet PO PRN ×2 (19:30)
[2024-08-16] MEDS ORDERED: magnesium sulf-water 2g/50mL 50 ML IV PRN (19:30)
[2024-08-16] MEDS: magnesium Cl slow-release 64mg tablet PO PRN (20:00)
[2024-08-16] MEDS ORDERED: K and/or MAG REPLACEMENT MC SCH (20:00)
[2024-08-16 20:21] VITALS: BP 149/57; PULSE 72; O2SAT 72
[2024-08-16 22:00] VITALS: BP 126/84; PULSE 77; RESP 18; TEMP 97.6; O2SAT 96
[2024-08-16] MEDS: labetalol 100mg tablet PO SCH (22:21)
[2024-08-17 06:00] VITALS: BP 138/62; PULSE 79; RESP 18; TEMP 97.7; O2SAT 97
[2024-08-17 06:24] LABS: BASOPHILS # (AUTO) 0.1 X10'3 (0-0.2); BASOPHILS % (AUTO) 0.9 % (0-1); EOSINOPHILS # (AUTO) 0.4 X10'3 (0-0.9); EOSINOPHILS % (AUTO) 6.5 % (0-6); HEMATOCRIT 30.1 % (35.0-45.0); HEMOGLOBIN 10.2 g/dl (12.0-16.0); LYMPHOCYTES # (AUTO) 1.8 X10'3 (1.1-4.8); LYMPHOCYTES % (AUTO) 30.6 % (21-51); MEAN CORPUSCULAR HEMOGLOBIN 30.7 PG (27.0-31.0); MEAN CORPUSCULAR HGB CONC 33.7 g/dL (33.0-36.5); MEAN CORPUSCULAR VOLUME 90.9 FL (78-98); MEAN PLATELET VOLUME 8.1 FL (7.4-10.4); MONOCYTES # (AUTO) 0.6 X10'3 (0-0.9); MONOCYTES % (AUTO) 9.6 % (2-12); NEUTROPHILS # (AUTO) 3.1 X10'3 (1.8-7.7); NEUTROPHILS % (AUTO) 52.4 % (42-75); PLATELET COUNT 147 X10'3 (140-440); RED BLOOD COUNT 3.31 X10'6 (4.20-5.60); RED CELL DISTRIBUTION WIDTH 18.4 % (11.5-14.5); WHITE BLOOD COUNT 5.9 X10'3 (4.5-11.0)
[2024-08-17 06:58] LABS: ALANINE AMINOTRANSFERASE 20 U/L (12-78); ALBUMIN 1.1 G/DL (3.4-5.0); ALBUMIN/GLOBULIN RATIO 0.3 (1.1-1.5); ALKALINE PHOSPHATASE 228 IU/L (46-116); ANION GAP 7 (8-16); ASPARTATE AMINO TRANSFERASE 41 U/L (10-37); BILIRUBIN,TOTAL 0.3 MG/DL (0.1-1.0); BLOOD UREA NITROGEN 21 MG/DL (7-18); BUN/CREATININE RATIO 10.4 (10.0-20.0); CALCIUM 7.8 MG/DL (8.5-10.1); CHLORIDE 104 MMOL/L (99-107); CREATININE 2.01 MG/DL (0.40-0.90); GLUCOSE 118 MG/DL (70-104); MAGNESIUM 1.6 MG/DL (1.5-2.4); POTASSIUM 4.5 MMOL/L (3.5-5.1); PRO BRAIN NATRIURETIC PEPTIDE 7174 PG/ML (0-125); SODIUM 138 MMOL/L (135-145); TOTAL CARBON DIOXIDE 26.8 MMOL/L (24-32); TOTAL PROTEIN 4.6 G/DL (6.4-8.2); eCRCL 19 ML/MIN; eGFR 24 ML/MIN
[2024-08-17 10:00] VITALS: BP 136/65; PULSE 72; RESP 20; TEMP 97.5; O2SAT 99
[2024-08-17 18:00] VITALS: BP 132/50; PULSE 74; RESP 18; TEMP 97.8; O2SAT 99
[2024-08-17 22:00] VITALS: BP 144/66; PULSE 81; RESP 18; TEMP 97.7; O2SAT 96
[2024-08-18 06:00] VITALS: BP 146/50; PULSE 87; RESP 16; TEMP 97.1; O2SAT 98
[2024-08-18 06:03] LABS: BASOPHILS % (AUTO) 0.7 % (0-1); EOSINOPHILS # (AUTO) 0.3 X10'3 (0-0.9); HEMATOCRIT 30.3 % (35.0-45.0); HEMOGLOBIN 10.2 g/dl (12.0-16.0); LYMPHOCYTES # (AUTO) 1.7 X10'3 (1.1-4.8); LYMPHOCYTES % (AUTO) 41.7 % (21-51); MEAN CORPUSCULAR HEMOGLOBIN 30.5 PG (27.0-31.0); MEAN CORPUSCULAR HGB CONC 33.8 g/dL (33.0-36.5); MEAN CORPUSCULAR VOLUME 90.3 FL (78-98); MEAN PLATELET VOLUME 8.4 FL (7.4-10.4); MONOCYTES # (AUTO) 0.5 X10'3 (0-0.9); MONOCYTES % (AUTO) 11.2 % (2-12); NEUTROPHILS # (AUTO) 1.6 X10'3 (1.8-7.7); NEUTROPHILS % (AUTO) 39.4 % (42-75); PLATELET COUNT 155 X10'3 (140-440); RED BLOOD COUNT 3.35 X10'6 (4.20-5.60); RED CELL DISTRIBUTION WIDTH 18.1 % (11.5-14.5); WHITE BLOOD COUNT 4.1 X10'3 (4.5-11.0)
[2024-08-18 06:18] LABS: ALANINE AMINOTRANSFERASE 18 U/L (12-78); ALBUMIN 1.4 G/DL (3.4-5.0); ALBUMIN/GLOBULIN RATIO 0.4 (1.1-1.5); ALKALINE PHOSPHATASE 228 IU/L (46-116); ANION GAP 5 (8-16); ASPARTATE AMINO TRANSFERASE 44 U/L (10-37); BILIRUBIN,TOTAL 0.3 MG/DL (0.1-1.0); BLOOD UREA NITROGEN 22 MG/DL (7-18); BUN/CREATININE RATIO 9.4 (10.0-20.0); CHLORIDE 104 MMOL/L (99-107); CREATININE 2.34 MG/DL (0.40-0.90); GLUCOSE 122 MG/DL (70-104); POTASSIUM 4.7 MMOL/L (3.5-5.1); SODIUM 137 MMOL/L (135-145); TOTAL CARBON DIOXIDE 27.9 MMOL/L (24-32); eCRCL 17 ML/MIN; eGFR 20 ML/MIN
[2024-08-18 06:48] LABS: MAGNESIUM 1.8 MG/DL (1.5-2.4)
[2024-08-18 10:00] VITALS: BP 182/94; PULSE 83; RESP 18; TEMP 98.1; O2SAT 97
[2024-08-18 11:00] VITALS: BP 146/66; PULSE 85; RESP 18; TEMP 97.5; O2SAT 98
[2024-08-18] MEDS: furosemide 20 MG/2 ML vial IV SCH (11:08)
[2024-08-18 18:00] VITALS: BP 148/67; PULSE 82; RESP 14; O2SAT 99
[2024-08-18 22:00] VITALS: BP 149/63; PULSE 89; RESP 16; TEMP 97.7; O2SAT 97
[2024-08-19 06:00] VITALS: BP 139/62; PULSE 70; RESP 17; TEMP 97.6; O2SAT 98
[2024-08-19 08:11] LABS: BASOPHILS % (AUTO) 0.5 % (0-1); EOSINOPHILS # (AUTO) 0.3 X10'3 (0-0.9); EOSINOPHILS % (AUTO) 8.3 % (0-6); HEMATOCRIT 28.5 % (35.0-45.0); HEMOGLOBIN 9.5 g/dl (12.0-16.0); LYMPHOCYTES # (AUTO) 1.2 X10'3 (1.1-4.8); LYMPHOCYTES % (AUTO) 37.9 % (21-51); MEAN CORPUSCULAR HEMOGLOBIN 30.2 PG (27.0-31.0); MEAN CORPUSCULAR HGB CONC 33.4 g/dL (33.0-36.5); MEAN CORPUSCULAR VOLUME 90.2 FL (78-98); MEAN PLATELET VOLUME 8.1 FL (7.4-10.4); MONOCYTES # (AUTO) 0.5 X10'3 (0-0.9); MONOCYTES % (AUTO) 15.2 % (2-12); NEUTROPHILS # (AUTO) 1.2 X10'3 (1.8-7.7); NEUTROPHILS % (AUTO) 38.1 % (42-75); PLATELET COUNT 148 X10'3 (140-440); RED BLOOD COUNT 3.16 X10'6 (4.20-5.60); RED CELL DISTRIBUTION WIDTH 17.7 % (11.5-14.5); WHITE BLOOD COUNT 3.1 X10'3 (4.5-11.0)
[2024-08-19 08:35] LABS: ALANINE AMINOTRANSFERASE 17 U/L (12-78); ALBUMIN 1.3 G/DL (3.4-5.0); ALBUMIN/GLOBULIN RATIO 0.4 (1.1-1.5); ALKALINE PHOSPHATASE 213 IU/L (46-116); ANION GAP 5 (8-16); ASPARTATE AMINO TRANSFERASE 41 U/L (10-37); BILIRUBIN,TOTAL 0.4 MG/DL (0.1-1.0); BLOOD UREA NITROGEN 21 MG/DL (7-18); BUN/CREATININE RATIO 9.1 (10.0-20.0); CALCIUM 7.9 MG/DL (8.5-10.1); CHLORIDE 107 MMOL/L (99-107); CREATININE 2.32 MG/DL (0.40-0.90); GLUCOSE 95 MG/DL (70-104); POTASSIUM 4.4 MMOL/L (3.5-5.1); SODIUM 139 MMOL/L (135-145); TOTAL CARBON DIOXIDE 27.2 MMOL/L (24-32); TOTAL PROTEIN 4.8 G/DL (6.4-8.2); eCRCL 17 ML/MIN; eGFR 21 ML/MIN
[2024-08-19 10:00] VITALS: BP 150/63; PULSE 87; RESP 18; TEMP 97.9; O2SAT 98
[2024-08-19 10:52] VITALS: BP_SYST 180; PULSE 87
== END 2024-08-19 13:40 | DRG 871 ==
LOC: ER 08:40 → ED HOLD 12:10 → ORTHO 4S 15:10
PROVIDERS: ADMIT Nurse Practitioner Family; ATTEND Nurse Practitioner Family
PROC: B3251ZZ Computerized Tomography (CT Scan) of Bilateral Common Carotid Arteries using Low Osmolar Contrast (ICD-10-PCS; principal; 2024-08-14)
PROC: B32G1ZZ Computerized Tomography (CT Scan) of Bilateral Vertebral Arteries using Low Osmolar Contrast (ICD-10-PCS; 2024-08-14)
PROC: B32R1ZZ Computerized Tomography (CT Scan) of Intracranial Arteries using Low Osmolar Contrast (ICD-10-PCS; 2024-08-14)
PROC: B3281ZZ Computerized Tomography (CT Scan) of Bilateral Internal Carotid Arteries using Low Osmolar Contrast (ICD-10-PCS; 2024-08-14)
PROC: CB121ZZ Planar Nuclear Medicine Imaging of Lungs and Bronchi using Technetium 99m (Tc-99m) (ICD-10-PCS; 2024-08-15)
DX: A41.9 Sepsis, unspecified organism (principal); G93.41 Metabolic encephalopathy; N39.0 Urinary tract infection, site not specified; I13.0 Hypertensive heart and chronic kidney disease with heart failure and stage 1 through stage 4 chronic kidney disease, or unspecified chronic kidney disease; N17.9 Acute kidney failure, unspecified; I16.1 Hypertensive emergency; Z68.42 Body mass index [BMI] 45.0-49.9, adult; K55.8 Other vascular disorders of intestine; I50.32 Chronic diastolic (congestive) heart failure; E87.20 Acidosis, unspecified; N18.30 Chronic kidney disease, stage 3 unspecified; E11.22 Type 2 diabetes mellitus with diabetic chronic kidney disease; I27.81 Cor pulmonale (chronic); E66.01 Morbid (severe) obesity due to excess calories; R65.20 Severe sepsis without septic shock; J44.89 Other specified chronic obstructive pulmonary disease; E11.42 Type 2 diabetes mellitus with diabetic polyneuropathy; Z88.0 Allergy status to penicillin; Z88.5 Allergy status to narcotic agent; Z88.8 Allergy status to other drugs, medicaments and biological substances; Z79.82 Long term (current) use of aspirin; Z79.899 Other long term (current) drug therapy; Z79.4 Long term (current) use of insulin; Z90.710 Acquired absence of both cervix and uterus; Z90.49 Acquired absence of other specified parts of digestive tract; Z82.49 Family history of ischemic heart disease and other diseases of the circulatory system; Z80.1 Family history of malignant neoplasm of trachea, bronchus and lung; B96.20 Unspecified Escherichia coli [E. coli] as the cause of diseases classified elsewhere
CPT/HCPCS: 36415; 70450; 70496; 70498; 71045; 74176; 76770; 78582; 80053; 80061; 81001; 82948; 83036; 83605; 83690; 83735; 83880; 84145; 85025; 85379; 85610; 85730; 86885; 86900; 86901; 87040; 87077; 87081; 87088; 87186; 93005; 93306; 97161; 97530; 99291; A6213; A9539; A9540; C1758; G0378; J0360; J0696; J1644; J1815; J1940; J2270; J2405; J7030; J7120; Q9967

== ENCOUNTER 2024-09-17 20:13 | Emergency (ER) | payer MEDICARE, OTHER ==
[~2024-09-17] VITALS: Ht 157.5 cm; Wt 100.9 kg
[2024-09-17 21:50] LABS: BILIRUBIN,URINE NEGATIVE (Neg); CLARITY,URINE CLEAR (Clear); COLOR,URINE YELLOW (Yellow); GLUCOSE, URINE 100 mg/dl (Neg); KETONES,URINE NEGATIVE (Neg); LEUKOCYTE ESTERASE ,URINE NEGATIVE (Neg); NITRITES, URINE NEGATIVE (Neg); OCCULT BLOOD,URINE NEGATIVE (Neg); PH,URINE 5.5 (4.8-8.0); PROTEIN,URINE 100 mg/dl (Neg); UROBILINOGEN,URINE 0.2 E.U/dL (0.2-1.0)
[2024-09-17 21:50] LABS: BASOPHILS # (AUTO) 0.1 X10'3 (0-0.2); BASOPHILS % (AUTO) 1.4 % (0-1); EOSINOPHILS # (AUTO) 0.3 X10'3 (0-0.9); EOSINOPHILS % (AUTO) 5.6 % (0-6); HEMATOCRIT 34.1 % (35.0-45.0); HEMOGLOBIN 11.5 g/dl (12.0-16.0); LYMPHOCYTES # (AUTO) 1.8 X10'3 (1.1-4.8); LYMPHOCYTES % (AUTO) 37.3 % (21-51); MEAN CORPUSCULAR HEMOGLOBIN 30.9 PG (27.0-31.0); MEAN CORPUSCULAR HGB CONC 33.6 g/dL (33.0-36.5); MEAN CORPUSCULAR VOLUME 91.8 FL (78-98); MEAN PLATELET VOLUME 7.4 FL (7.4-10.4); MONOCYTES # (AUTO) 0.6 X10'3 (0-0.9); MONOCYTES % (AUTO) 11.5 % (2-12); NEUTROPHILS # (AUTO) 2.1 X10'3 (1.8-7.7); NEUTROPHILS % (AUTO) 44.2 % (42-75); PLATELET COUNT 220 X10'3 (140-440); RED BLOOD COUNT 3.72 X10'6 (4.20-5.60); RED CELL DISTRIBUTION WIDTH 17.3 % (11.5-14.5); WHITE BLOOD COUNT 4.9 X10'3 (4.5-11.0)
[2024-09-17 21:58] LABS: UA COLLECTION TYPE CLN CATCH MIDSTREAM
[2024-09-17 22:00] LABS: BACTERIA,URINE 4+ /HPF (Neg); RBC,URINE 0-2 /HPF (0-2); SQUAMOUS EPITHELIAL CELL,UR FEW /LPF (FEW); WBC,URINE 0-4 /HPF (0-4)
[2024-09-17 22:09] LABS: ALBUMIN 1.9 G/DL (3.4-5.0); ANION GAP 5 (8-16); BLOOD UREA NITROGEN 10 MG/DL (7-18); BUN/CREATININE RATIO 7.5 (10.0-20.0); CALCIUM 7.9 MG/DL (8.5-10.1); CHLORIDE 108 MMOL/L (99-107); CREATININE 1.34 MG/DL (0.40-0.90); GLUCOSE 91 MG/DL (70-104); POTASSIUM 3.6 MMOL/L (3.5-5.1); SODIUM 144 MMOL/L (135-145); TOTAL CARBON DIOXIDE 30.8 MMOL/L (24-32); eCRCL 29 ML/MIN; eGFR 39 ML/MIN
[2024-09-17] MEDS ORDERED: CEFU250T95 PO (22:55)
[2024-09-17] MEDS: CefTRIAXone 1000mg IM Kit (w/lidocaine diluent) IM ONE (23:29)
[2024-09-17] MEDS: CefTRIAXone/D5W-Rocephin 1gm 50 ML IV STA (23:34)
[2024-09-17] MEDS: normal saline 1000ml 1,000 ML IV STA (23:35)
[2024-09-18 00:25] VITALS: BP 145/69; PULSE 70; RESP 16; O2SAT 98
== END 2024-09-18 01:00 | disposition home or self-care (01) ==
LOC: ER 20:14
DX: N39.0 Urinary tract infection, site not specified (principal); R51.9 Headache, unspecified; E11.42 Type 2 diabetes mellitus with diabetic polyneuropathy; E11.22 Type 2 diabetes mellitus with diabetic chronic kidney disease; I50.9 Heart failure, unspecified; N18.9 Chronic kidney disease, unspecified; M19.90 Unspecified osteoarthritis, unspecified site; Z86.73 Personal history of transient ischemic attack (TIA), and cerebral infarction without residual deficits; Z90.710 Acquired absence of both cervix and uterus; Z88.8 Allergy status to other drugs, medicaments and biological substances; Z90.49 Acquired absence of other specified parts of digestive tract; Z56.0 Unemployment, unspecified; Z88.0 Allergy status to penicillin; Z91.048 Other nonmedicinal substance allergy status; Z79.82 Long term (current) use of aspirin; Z79.4 Long term (current) use of insulin
CPT/HCPCS: 36415; 70450; 71045; 80048; 81001; 84145; 85025; 87077; 87088; 87186; 96365; 99285; C1758; J0696; J7030

== ENCOUNTER 2024-12-17 19:23 | Emergency (ER) | payer MEDICARE, OTHER ==
[~2024-12-17] VITALS: Ht 152.4 cm; Wt 104.5 kg
[2024-12-17 19:27] VITALS: BP 179/83; PULSE 95; RESP 19; TEMP 98.7; O2SAT 96
[2024-12-17 20:01] LABS: BASOPHILS # (AUTO) 0.1 X10'3 (0-0.2); BASOPHILS % (AUTO) 1.3 % (0-1); EOSINOPHILS # (AUTO) 0.1 X10'3 (0-0.9); EOSINOPHILS % (AUTO) 1.4 % (0-6); HEMATOCRIT 30.1 % (35.0-45.0); HEMOGLOBIN 10.2 g/dl (12.0-16.0); LYMPHOCYTES % (AUTO) 21.1 % (21-51); MEAN CORPUSCULAR HEMOGLOBIN 31.5 PG (27.0-31.0); MEAN CORPUSCULAR HGB CONC 33.8 g/dL (33.0-36.5); MEAN PLATELET VOLUME 7.2 FL (7.4-10.4); MONOCYTES # (AUTO) 0.5 X10'3 (0-0.9); MONOCYTES % (AUTO) 9.9 % (2-12); NEUTROPHILS # (AUTO) 3.1 X10'3 (1.8-7.7); NEUTROPHILS % (AUTO) 66.3 % (42-75); PLATELET COUNT 188 X10'3 (140-440); RED BLOOD COUNT 3.24 X10'6 (4.20-5.60); RED CELL DISTRIBUTION WIDTH 18.2 % (11.5-14.5); WHITE BLOOD COUNT 4.7 X10'3 (4.5-11.0)
[2024-12-17 20:12] LABS: ALANINE AMINOTRANSFERASE 10 U/L (12-78); ALBUMIN 2.1 G/DL (3.4-5.0); ALBUMIN/GLOBULIN RATIO 0.6 (1.1-1.5); ALKALINE PHOSPHATASE 177 IU/L (46-116); ANION GAP 7 (8-16); ASPARTATE AMINO TRANSFERASE 20 U/L (10-37); BILIRUBIN,TOTAL 0.8 MG/DL (0.1-1.0); BLOOD UREA NITROGEN 15 MG/DL (7-18); BUN/CREATININE RATIO 8.5 (10.0-20.0); CALCIUM 7.9 MG/DL (8.5-10.1); CHLORIDE 107 MMOL/L (99-107); CREATININE 1.76 MG/DL (0.40-0.90); GLUCOSE 104 MG/DL (70-104); POTASSIUM 4.2 MMOL/L (3.5-5.1); SODIUM 141 MMOL/L (135-145); TOTAL PROTEIN 5.5 G/DL (6.4-8.2); eCRCL 20 ML/MIN; eGFR 28 ML/MIN
[2024-12-17 20:19] LABS: PRO BRAIN NATRIURETIC PEPTIDE 2541 PG/ML (0-125)
== END 2024-12-17 22:45 | disposition left against medical advice (07) ==
LOC: ER 19:23
DX: Z00.8 Encounter for other general examination (principal); R06.02 Shortness of breath; R11.0 Nausea; R07.9 Chest pain, unspecified; E11.22 Type 2 diabetes mellitus with diabetic chronic kidney disease; E11.42 Type 2 diabetes mellitus with diabetic polyneuropathy; I50.9 Heart failure, unspecified; N18.9 Chronic kidney disease, unspecified; M19.90 Unspecified osteoarthritis, unspecified site; Z88.0 Allergy status to penicillin; Z88.5 Allergy status to narcotic agent; Z88.8 Allergy status to other drugs, medicaments and biological substances; Z90.49 Acquired absence of other specified parts of digestive tract; Z90.710 Acquired absence of both cervix and uterus; Z79.82 Long term (current) use of aspirin
CPT/HCPCS: 36415; 71045; 80053; 83880; 84484; 85025; 93005; 99285